=== PATIENT | male | born 1955 ===

== ENCOUNTER 2016-09-01 14:42 | Emergency (ER) | payer MEDICARE, OTHER ==
[2016-09-01 15:33] VITALS: BP 101/56; PULSE 80; RESP 16; TEMP 98.2
[2016-09-01] MEDS ORDERED: DIPH,PERTUS(ACELL)TETVAC-LF 0.5 ML VIAL IM ONE (15:50)
[2016-09-01] MEDS ORDERED: GELATIN SPONGE,ABSORB (SMALL) 1 EACH SPONGE TOPICAL STA (15:50)
--- NOTE | 2016-09-01 15:52 | ED ---
General Adult HPI - General Chief complaint: Wound/Laceration Stated complaint: Finger Lac/ on blood thinners Time Seen by Provider: 09/01/16 15:49 Source: patient, RN notes reviewed Mode of arrival: ambulatory Limitations: no limitations - History of Present Illness Initial comments: Patient 60-year-old male who presents emergency room today with chief complaint of laceration located to the right index finger. He does admit that he was moving some plywood when it fell down pinched his right finger causing a abrasion of the skin. Does admit that he is on blood thinners Xarelto and Plavix. Patient states unsure of tetanus status. Denies any other complaints or symptoms. Patient denies any recent fever, chills, shortness of breath, chest pain, back pain, abdominal pain, nausea or vomiting, numbness or tingling , dysuria or hematuria, constipation or diarrhea, headaches or visual changes, or any other complaints. - Related Data Home Medications Medication Instructions Recorded Confirmed ALPRAZolam [Xanax] 1 mg PO TID PRN 08/07/15 02/05/16 Acyclovir [Zovirax] 200 mg PO BID 08/07/15 02/05/16 Clopidogrel [Plavix] 75 mg PO HS 08/07/15 02/05/16 Lansoprazole [Prevacid] 15 mg PO DAILY 08/07/15 02/05/16 Lisinopril [Zestril] 30 mg PO DAILY 08/07/15 02/05/16 Magnesium 250 mg PO DAILY 08/07/15 02/05/16 Metoprolol Tartrate [Lopressor] 100 mg PO BID 08/07/15 02/05/16 Testosterone Cypionate 50 mg IM FR 08/07/15 02/05/16 [Depo-Testosterone] Cholecalciferol [Vitamin D3] 2,000 unit PO DAILY 08/19/15 02/05/16 Aspirin 325 mg PO DAILY 02/02/16 02/05/16 Rivaroxaban [Xarelto] 20 mg PO HS 02/02/16 02/05/16 Previous Rx's Medication Instructions Recorded Atorvastatin [Lipitor] 80 mg PO HS #30 tab 08/25/15 Nitroglycerin Sl Tabs [Nitrostat] 0.4 mg SUBLINGUAL Q5M PRN #25 tab 08/25/15 Spironolactone [Aldactone] 25 mg PO DAILY #30 tab 08/25/15 Amiodarone [Cordarone] 200 mg PO DAILY #90 tab 02/05/16 Allergies Allergy/AdvReac Type Severity Reaction Status Date / Time hydrocodone Allergy Itching Verified 09/01/16 15:33 Review of Systems ROS Statement: Those systems with pertinent positive or pertinent negative responses have been documented in the HPI. ROS Other: All systems not noted in ROS Statement are negative. Past Medical History Past Medical History: Coronary Artery Disease (CAD), Chest Pain / Angina, CVA/ TIA, Deep Vein Thrombosis (DVT), GERD/Reflux, Hypertension, Myocardial Infarction ([place]), Vascular Disorder Additional Past Medical History / Comment(s): [place] in 1988. See Dr. Mendez's H & P. Last Myocardial Infarction Date:: 1988 History of Any Multi-Drug Resistant Organisms: None Reported Past Surgical History: Back Surgery, Heart Catheterization With Stent, Pacemaker Additional Past Surgical History / Comment(s): Lt leg multiple surgeries for trauma, Rt finger surgery, arthroscopic L knee surgery , back injections for pain, L4-L5, back surgery. Past Anesthesia/Blood Transfusion Reactions: No Reported Reaction Date of Last Stent Placement:: 08/19/15 Type of Cardiac Device: AICD Device Placement Date:: 2015 Past Psychological History: Anxiety Additional Psychological History / Comment(s): Pt has an adult son who lives with him. He is independent. He has a cane or walker to use for ambulation. He drives. No outside services being used. Smoking Status: Former smoker Past Alcohol Use History: None Reported Additional Past Alcohol Use History / Comment(s): Pt states he started smoking in 1967 and was up to a 2 ppd smoker. He quit in 2004. Past Drug Use History: Marijuana Additional Drug Use History / Comment(s): Uses medical marijuana rarely. - Past Family History Mother Family Medical History: Cancer Additional Family Medical History / Comment(s): Mother had renal cancer. She at age 72 from this. Father Additional Family Medical History / Comment(s): Father was a 3 ppd smoker. He at age 60 yrs of ASHD. General Exam - General Exam Comments Initial Comments: General: The patient is awake and alert, in no distress, and does not appear acutely ill. Neck: The neck is supple, there is no tenderness or JVD. Cardiovascular: There is a regular rate and rhythm. No murmur, rub or gallop is appreciated. Respiratory: Lungs are clear to auscultation, respirations are non-labored, breath sounds are equal. No wheezes, stridor, rales, or rhonchi. Musculoskeletal: Normal range of motion. Strength 5/5. Sensation intact. Pulses equal bilaterally 2+. Neurological: A&O x 3. CN II-XII intact, There are no obvious motor or sensory deficits. Coordination appears grossly intact. Speech is normal. Skin: Skin avulsion of the distal aspect volar of the right index finger. Mild venous oozing. Psychiatric: Normal mood and affect. Limitations: no limitations Course Vital Signs 09/01/16 15:30 Temperature 98.2 F Pulse Rate 80 Respiratory 16 Rate Blood Pressure 101/56 O2 Sat by Pulse 94 L Oximetry Medical Decision Making - Medical Decision Making Tetanus updated here in the emergency room. Area cleaned here in the emergency room and bleeding stopped with Gelfoam. Patient has sterile nonstick dressing placed over top. Disposition Clinical Impression: Laceration Disposition: HOME SELF-CARE Condition: Good Instructions: Laceration (ED) Additional Instructions: Please allow the Gelfoam fall off on its own. Please change dressing twice daily. Please hold pressure to wound if bleeding degrees occurs for 20 minutes. If rebleeding is uncontrolled at home please return to emergency room. Please return to emergency room for any other concerns. Time of Disposition: 16:39
== END 2016-09-01 16:51 | disposition home or self-care (01) ==
LOC: EC 14:42
DX: S61.210A Laceration without foreign body of right index finger without damage to nail, initial encounter (principal); W20.8XXA Other cause of strike by thrown, projected or falling object, initial encounter; Z79.02 Long term (current) use of antithrombotics/antiplatelets; Z79.899 Other long term (current) drug therapy; Z79.82 Long term (current) use of aspirin; Z79.01 Long term (current) use of anticoagulants; I10 Essential (primary) hypertension; K21.9 Gastro-esophageal reflux disease without esophagitis; I25.10 Atherosclerotic heart disease of native coronary artery without angina pectoris; Z86.73 Personal history of transient ischemic attack (TIA), and cerebral infarction without residual deficits; Z88.5 Allergy status to narcotic agent; I25.2 Old myocardial infarction; Z86.718 Personal history of other venous thrombosis and embolism; Z87.891 Personal history of nicotine dependence
CPT/HCPCS: 90471; 90715; 99282

== ENCOUNTER 2018-01-06 07:39 | Day surgery (SDC) | payer MEDICARE ==
[~2018-01-06 07:39] MED LIST: PREMYELOGRAM MEDICATION REVIEW 1 EACH MISC PO PRN
[2018-01-06 08:36] VITALS: TEMP 98.1
--- NOTE | 2018-01-06 09:56 | FL ---
EXAMINATION TYPE: FL myelogram lumbosacral DATE OF EXAM: 01/06/2018 9:52 AM HISTORY: Lower extremity pain and numbness Informed consent was obtained and all the patient's questions were answered. The L3-L4 level was loc alized under fluoroscopy. Standard sterile technique was utilized as well as appropriate local anest hesia 1% Lidocaine and sodium bicarbonate. Spinal needle was introduced into the thecal sac under fl uoroscopic guidance and 10 cc of Omni 240 was injected. The patient tolerated the procedure well and left the department in stable condition. CT myelography is to follow. IMPRESSION: Successful myelography lumbar spine
--- NOTE | 2018-01-06 10:21 | CT ---
EXAMINATION TYPE: CT lumbar spine w con DATE OF EXAM: 01/06/2018 COMPARISON: 08/15/2015 HISTORY: Spinal stenosis site unspecified CT DLP: 1198.50 mGycm CONTRAST: Unenhanced CT of the lumbar spine is performed with IV Contrast, patient injected with 12 cc mL of Is ovue M300. Unenhanced CT of the lumbar spine was performed. Bone and soft tissue window settings are submitted as well as coronal and sagittal reconstructions. L1-L2: Severe degenerative disc space narrowing with vacuum disc noted. Subligamentous disc herniatio n identified with effacement of the ventral thecal sac and mild to moderate central stenosis. Mild fa cet joint arthropathy without foraminal encroachment. L2-L3: Severe disc space narrowing and vacuum disc noted and endplate sclerosis. Ventral spondylosis. Posterior bulging discs with encapsulating spur resulting in hard disc. Again noted is mild central stenosis. L3-L4: Moderate disc desiccation with left paracentral disc herniation. Effacement ventral thecal sac left lateral recess stenosis and mild central stenosis. Left foraminal encroachment also noted. Grad e 1 retrolisthesis of L3 on L4 measuring 4.3 mm. L4-L5: Postoperative changes of fusion. Pedicular screws are in place. Alignment is anatomic. Interve rtebral body spacers are in place. No evidence for recurrent or residual disease at this level. L5-S1: Mild degenerative disc space narrowing. Posterior disc bulge. No herniation protrusion or cent ral stenosis. Foramina are patent bilaterally. No paraspinal masses are identified. Lumbar segments are free if fracture. Stable infrarenal abdomin al aortic aneurysm. IMPRESSION: 1. Low degenerative disc disease as discussed. 2. Central stenosis at L1-2, L2-3 and L3-4. See above.
[2018-01-06 11:28] VITALS: PULSE 54
[2018-01-06 14:39] VITALS: BP 121/69; RESP 20
== END 2018-01-06 14:15 | disposition home or self-care (01) ==
LOC: RADPROMAIN 07:39
PROVIDERS: ATTEND Family Medicine
DX: M51.36 Other intervertebral disc degeneration, lumbar region (principal); M48.061 Spinal stenosis, lumbar region without neurogenic claudication
CPT/HCPCS: 62304; 72132; Q9967

== ENCOUNTER → 2018-04-04 | Outpatient (CLI) | payer MEDICARE | LOC: RADCTMAIN 12:52 | PROVIDERS: ATTEND Family Medicine | DX: Z13.9 Encounter for screening, unspecified (principal) | CPT/HCPCS: 82565; 84520 ==

== ENCOUNTER → 2020-04-09 | Outpatient (CLI) | payer MEDICARE ==
--- NOTE | 2020-04-09 08:54 | CT ---
EXAMINATION TYPE: CT abdomen wo con DATE OF EXAM: 04/09/2020 COMPARISON: None HISTORY: AAA CT DLP: 419.8 mGycm Examination of the solid and hollow viscera is limited given the lack of contrast. Unenhanced CT of t he abdomen was performed. The lack of contrast limits evaluation. FINDINGS: LUNG BASES: No evidence for nodule. No evidence for infiltrate. LIVER/GB: Cholelithiasis noted. Gallbladder appears to be contracted. No space-occupying hepatic lesi on. PANCREAS: No pancreatic mass identified. No inflammatory process seen. SPLEEN: No evidence for splenomegaly. No intrasplenic lesions seen. ADRENALS: No adrenal nodules identified. No evidence for thickening. KIDNEYS: No evidence for renal mass. No nephrolithiasis. No hydronephrosis. BOWEL: Appendix has a normal appearance. No evidence of bowel obstruction. No inflammatory process. Lymph nodes: No evidence for adenopathy greater than 1 cm. Abdominal aorta: There is evidence for infrarenal abdominal aortic aneurysm with maximal AP dimension of 4.2 cm and length of approximately 7.2 cm. Ectasia of the visualized iliac arteries. Other: Severe degenerative change lumbar spine. Postoperative changes noted. IMPRESSION: 1. Infrarenal abdominal aortic aneurysm as discussed above. Limited characterization given lack of co ntrast.
== END | disposition home or self-care (01) ==
LOC: RADCTMAIN 08:01
PROVIDERS: ATTEND Family Medicine
DX: I71.4 Abdominal aortic aneurysm, without rupture (principal)
CPT/HCPCS: 74150

== ENCOUNTER 2022-07-05 11:55 | Day surgery (SDC) | payer MEDICARE ==
[2022-07-02 09:00] VITALS: BMI 29.1
[~2022-07-05 11:55] MED LIST changes: +DEXAMETHASONE SOD PHOSPHATE 4 MG/ML 1 ML VIAL IV ONE; +LACTATED RINGERS 1,000 ML IV SCH; +MIDAZOLAM 2 MG/2 ML VIAL IV PRN; +ONDANSETRON 4 MG/2 ML VIAL IVP ONE; -PREMYELOGRAM MEDICATION REVIEW 1 EACH MISC PO PRN; +PROPOFOL 10 MG/ML 20 ML VIAL IV ONE; +fentaNYL (PF) 50 MCG/ML 2 ML AMP IV PRN
[2022-07-05 12:56] VITALS: TEMP 97.3
[2022-07-05 13:09] LABS: Glucose,Whole Blood 140 mg/dL (70-110)
--- NOTE | 2022-07-05 14:30 | P.GSHP ---
History of Present Illness H&P Date: 07/05/22 Chief Complaint: Screening colonoscopy/constipation Is a 66-year-old male been safe for screening colonoscopy. Patient is issues with constipation. Patient's last colonoscopy was over 10 years ago. Past Medical History Past Medical History: Coronary Artery Disease (CAD), Chest Pain / Angina, CVA/TIA, Diabetes Mellitus, Deep Vein Thrombosis (DVT), GERD/Reflux, Hyperlipidemia, Hypertension, Myocardial Infarction ([place]), Osteoarthritis ([place]), Thyroid Disorder, Vascular Disorder Additional Past Medical History / Comment(s): [place] in 1988 &2013, hypothyroid, (pt poor historian), right side weakness from stroke Last Myocardial Infarction Date:: 1988 History of Any Multi-Drug Resistant Organisms: None Reported Past Surgical History: Back Surgery, Heart Catheterization With Stent, Pacemaker Additional Past Surgical History / Comment(s): Lt leg multiple surgeries for trauma, Rt finger surgery, arthroscopic L knee surgery , back injections for pain, L4-L5, back surgery, myelogram 2015 Past Anesthesia/Blood Transfusion Reactions: No Reported Reaction Date of Last Stent Placement:: 08/19/15 Type of Cardiac Device: Permanent Pacemaker, AICD Device Placement Date:: 2015 Smoking Status: Former smoker - Past Family History Mother Family Medical History: Cancer Additional Family Medical History / Comment(s): Mother had renal cancer. She at age 72 from this. Father Family Medical History: Coronary Artery Disease (CAD) Additional Family Medical History / Comment(s): Father was a 3 ppd smoker. He at age 60 yrs of ASHD. Medications and Allergies Home Medications Medication Instructions Recorded Confirmed Type Acyclovir [Zovirax] 200 mg PO BID 08/07/15 07/02/22 History Clopidogrel [Plavix] 75 mg PO HS 08/07/15 07/05/22 History Metoprolol Tartrate [Lopressor] 100 mg PO BID 08/07/15 07/05/22 History lisinopriL [Zestril] 30 mg PO DAILY 08/07/15 07/05/22 History Atorvastatin [Lipitor] 80 mg PO HS #30 tab 08/25/15 07/02/22 Rx Nitroglycerin Sl Tabs [Nitrostat] 0.4 mg SUBLINGUAL Q5M PRN #25 tab 08/25/15 07/05/22 Rx Rivaroxaban [Xarelto] 20 mg PO HS 02/02/16 07/05/22 History Torsemide [Demadex] 5 mg PO DAILY 12/22/17 07/05/22 History glipiZIDE [Glucotrol] 5 mg PO AC-BRKFST 12/22/17 07/05/22 History Sleeping Pill 50 mg PO HS PRN 07/02/22 07/05/22 History Allergies Allergy/AdvReac Type Severity Reaction Status Date / Time hydrocodone Allergy Itching Verified 07/05/22 12:52 Surgical - Exam Vital Signs Temp Pulse Resp BP Pulse Ox 97.3 F L 65 18 200/89 100 07/05/22 12:51 07/05/22 12:51 07/05/22 12:51 07/05/22 12:51 07/05/22 12:51 - General well developed, well nourished, no distress - Eyes PERRL - ENT normal pinna - Neck no masses - Respiratory normal expansion - Cardiovascular Rhythm: regular - Abdomen Abdomen: soft, non tender Results - Labs Abnormal Lab Results - Last 24 Hours (Table) 07/05/22 Range/Units 13:07 POC Glucose (mg/dL) 140 H (70-110) mg/dL Assessment and Plan Assessment: History constipation. We'll perform colonoscopy.
--- NOTE | 2022-07-05 14:44 | P.OP ---
Date of Procedure: 07/05/22 Preoperative Diagnosis: Constipation Postoperative Diagnosis: Right colon polyp Mild diverticulosis Procedure(s) Performed: Colonoscopy Anesthesia: MAC Surgeon: Mac Rivero Pathology: other (Right colon polyp) Condition: stable Disposition: PACU Description of Procedure: The patient's placed on the endoscopy table in the lateral position. He received IV sedation. Digital rectal exam was performed. This revealed no ebonized. The flexible colonoscope was then placed patient anus and passed thro ughout the entire colon. The ileocecal valve was visualized. The cecum appeared normal. In the right colon there is a small polyp seen this is removed with the cold forcep. Scope withdrawn remainder the ascending colon and transverse colon appeared normal. The descending and sigmoid colon had mild diverticulosis. Scope was then brought back the rectum this appeared normal. Scope withdrawn for patient.
[2022-07-05 15:18] VITALS: BP 129/65; PULSE 68; RESP 16
== END 2022-07-05 15:51 | disposition home or self-care (01) ==
LOC: ORWHC2ENDO 11:55
PROVIDERS: ATTEND Surgery
DX: D12.6 Benign neoplasm of colon, unspecified (principal); K57.30 Diverticulosis of large intestine without perforation or abscess without bleeding; I25.10 Atherosclerotic heart disease of native coronary artery without angina pectoris; E11.9 Type 2 diabetes mellitus without complications; I10 Essential (primary) hypertension; E78.5 Hyperlipidemia, unspecified; I25.2 Old myocardial infarction; E07.9 Disorder of thyroid, unspecified; Z95.810 Presence of automatic (implantable) cardiac defibrillator; Z87.891 Personal history of nicotine dependence; Z86.73 Personal history of transient ischemic attack (TIA), and cerebral infarction without residual deficits; Z82.49 Family history of ischemic heart disease and other diseases of the circulatory system; Z79.899 Other long term (current) drug therapy
CPT/HCPCS: 45380; J2704; 88305

== ENCOUNTER 2023-04-25 06:16 | Inpatient (IN) | payer MEDICARE ==
[2023-04-25] MEDS ORDERED: SODIUM CHLORIDE 0.9% 1,000 ML IV STA (06:28)
--- NOTE | 2023-04-25 06:45 | ED ---
Weakness HPI - General Chief complaint: Weakness Stated complaint: Fall, Weakness Time Seen by Provider: 04/25/23 06:18 Source: patient, EMS Mode of arrival: EMS - History of Present Illness Initial comments: Patient is 67-year-old male presenting to the ER via EMS with chief complaint of generalized weakness. Patient has a past medical history significant of hypertension, A. fib, CHF, and stroke. Patient's family spoke with EMS and stated patient has fallen twice this morning and his speech is off from baseline. Patient was sent home and his family are the primary caretakers. Patient states he has slid out of bed twice this morning and got a skin tear on his right elbow. Per EMS, his heart rate varies from the 30s to 90s regularly. In route, his systolic blood pressure was in the 170 to 180s. Patient denies home oxygen use or any current pain. Patient denies any headache, chest pain, shortness of breath, or abdominal pain. - Related Data Home Medications Medication Instructions Recorded Confirmed Acyclovir [Zovirax] 200 mg PO BID 08/07/15 04/25/23 Clopidogrel [Plavix] 75 mg PO DAILY 08/07/15 04/25/23 Torsemide [Demadex] 5 mg PO DAILY 12/22/17 04/25/23 glipiZIDE [Glucotrol] 5 mg PO DAILY 12/22/17 04/25/23 ALPRAZolam [Xanax] 1 mg PO TID 08/20/22 04/25/23 Atorvastatin [Lipitor] 80 mg PO DAILY 08/20/22 04/25/23 Metoprolol Tartrate [Lopressor] 100 mg PO BID 08/20/22 04/25/23 lisinopriL [Zestril] 10 mg PO BID 08/20/22 04/25/23 Levothyroxine Sodium [Synthroid] 150 mcg PO DAILY 04/25/23 04/25/23 QUEtiapine [SEROquel] 50 mg PO HS 04/25/23 04/25/23 Rivaroxaban [Xarelto] 15 mg PO DAILY 04/25/23 04/25/23 Allergies Allergy/AdvReac Type Severity Reaction Status Date / Time hydrocodone Allergy Itching Verified 04/25/23 13:01 Review of Systems ROS Statement: Those systems with pertinent positive or pertinent negative responses have been documented in the HPI. ROS Other: All systems not noted in ROS Statement are negative. Past Medical History Past Medical History: Coronary Artery Disease (CAD), Chest Pain / Angina, CVA/TIA, Diabetes Mellitus, Deep Vein Thrombosis (DVT), GERD/Reflux, Hyperlipidemia, Hypertension, Myocardial Infarction (ME), Osteoarthritis (OA), Thyroid Disorder, Vascular Disorder Additional Past Medical History / Comment(s): ME in 1988 &2013, hypothyroid, (pt poor historian), right side weakness from stroke Last Myocardial Infarction Date:: 1988 History of Any Multi-Drug Resistant Organisms: None Reported Past Surgical History: Back Surgery, Heart Catheterization With Stent, Pacemaker Additional Past Surgical History / Comment(s): Lt leg multiple surgeries for trauma, Rt finger surgery, arthroscopic L knee surgery , back injections for pain, L4-L5, back surgery, myelogram 2015 Past Anesthesia/Blood Transfusion Reactions: No Reported Reaction Date of Last Stent Placement:: 08/19/15 Type of Cardiac Device: Permanent Pacemaker, AICD Device Placement Date:: 2015 Past Psychological History: Anxiety Smoking Status: Former smoker Past Alcohol Use History: None Reported Past Drug Use History: None Reported - Past Family History Mother Family Medical History: Cancer Additional Family Medical History / Comment(s): Mother had renal cancer. She at age 72 from this. Father Family Medical History: Coronary Artery Disease (CAD) Additional Family Medical History / Comment(s): Father was a 3 ppd smoker. He at age 60 yrs of ASHD. General Exam Limitations: no limitations General appearance: alert, in no apparent distress Eye exam: Present: normal appearance, PERRL, EOMI. Absent: scleral icterus, conjunctival injection, periorbital swelling Pupils: Present: normal accommodation Respiratory exam: Present: normal lung sounds bilaterally. Absent: respiratory distress, wheezes, rales, rhonchi, stridor Cardiovascular Exam: Present: regular rate, irregular rhythm, normal heart sounds GI/Abdominal exam: Present: soft, normal bowel sounds. Absent: distended, ten derness, guarding, rebound, rigid Neurological exam: Present: alert, other (Equal bilateral strengths UE/LE) Skin exam: Present: warm, dry, normal color, other (right elbow skin tear). Absent: rash Course Vital Signs 04/25/23 04/25/23 04/25/23 07:37 09:19 09:29 Temperature 98.8 F Pulse Rate 79 73 Respiratory 18 Rate Blood Pressure 166/88 154/81 O2 Sat by Pulse 92 L 93 L Oximetry 04/25/23 10:49 Temperature Pulse Rate 68 Respiratory 24 Rate Blood Pressure 144/90 O2 Sat by Pulse 95 Oximetry EKG Findings - EKG Comments: EKG Findings:: EKG performed at 0747. Shows normal sinus rhythm with unchanged Twave abnormalities noted in lateral lateral leads .with a ventricular rate of 7 8, MD interval of 190, QRS duration 137, QT/QTc 444/477. Medical Decision Making - Medical Decision Making Was pt. sent in by a medical professional or institution (, PA, JOURNEYMAN WELDER, urgent care, hospital, or care home...) When possible be specific @ -No Did you speak to anyone other than the patient for history (EMS, parent, family, police, friend...)? What history was obtained from this source @ -EMS Did you review nursing and triage notes (agree or disagree)? Why? @ -I reviewed and agree with nursing and triage notes Were old charts reviewed (outside hosp., previous admission, EMS record, old EKG, old radiological studies, urgent care reports/EKG's, care home records)? Report findings @ -No old charts were reviewed Differential Diagnosis (chest pain, altered mental status, abdominal pain women, abdominal pain men, vaginal bleeding, weakness, fever, dyspnea, syncope, he adache, dizziness, GI bleed, back pain, seizure, CVA, palpatations, mental health, musculoskeletal)? @ -[nDifferential Weakness: Hypoglycemia, shock, sepsis, hyponatremia, anemia, infection, ME, ETOH, adverse medicine reaction, overdose, stroke, this is not meant to be an all-inclusive list. EKG interpreted by me (3pts min.). @ -As above X-rays interpreted by me (1pt min.). @ -Chest x-ray showed mild pulmonary vascular congestion and cardiomegaly CT interpreted by me (1pt min.). @ -None done U/S interpreted by me (1pt. min.). @ -None done What testing was considered but not performed or refused? (CT, X-rays, U/S, labs)? Why? @ -None What meds were considered but not given or refused? Why? @ -None Did you discuss the management of the patient with other professionals (professionals i.e. , PA, JOURNEYMAN WELDER, lab, RT, psych nurse, social media specialist, hospice fellow, teacher, targeting acquisition officer, director of casework department)? Give summary @ -No Was smoking cessation discussed for >3mins.? @ -No Was critical care preformed (if so, how long)? @ -No Were there social determinants of health that impacted care today? How? (Homelessness, low income, unemployed, alcoholism, drug addiction, transportation, low edu. Level, literacy, decrease access to med. care, long term, rehab)? @ -No Was there de-escalation of care discussed even if they declined (Discuss DNR or withdrawal of care, Hospice)? DNR status @ -No What co-morbidities impacted this encounter? (DM, HTN, Smoking, COPD, CAD, Cancer, CVA, ARF, Chemo, Hep., AIDS, mental health diagnosis, sleep apnea, morbid obesity)? @ -None Was patient admitted / discharged? Hospital course, mention meds given and route, prescriptions, significant lab abnormalities, going to OR and other pert inent info. @ -[Discharged. Patient is 67-year-old male presented ER with chief complaint of weakness. Chest x-ray in the ER shows mild pulmonary vascular congestion. Labs are significant for white blood cell count of 13.2, BNP 3900, UA negative, COVID-19 negative. EKG showed normal sinus rhythm with no acute T-wave abnormalities. Patient is a 500 mL of IV fluids in the ER. Patient was offered observation admission for weakness patient declined at this time and would like to go home. Patient will be discharged in stable condition patient expressed verbal understanding. Undiagnosed new problem with uncertain prognosis? @ -No Drug Therapy requiring intensive monitoring for toxicity (Heparin, Nitro, Insulin, Cardizem)? @ -No Were any procedures done? @ -No Diagnosis/symptom? @ -Weakness Acute, or Chronic, or Acute on Chronic? @ -Acute Uncomplicated (without systemic symptoms) or Complicated (systemic symptoms)? @ -Uncomplicated Side effects of treatment? @ -No Exacerbation, Progression, or Severe Exacerbation? @ -No Poses a threat to life or bodily function? How? (Chest pain, USA, ME, pneumonia, PE, COPD, DKA, ARF, appy, cholecystitis, CVA, Diverticulitis, Homicidal, Suicidal, threat to staff... and all critical care pts) @ -No - Lab Data Result diagrams: 04/25/23 08:06 04/25/23 08:06 Lab Results 04/25/23 04/25/23 04/25/23 Range/Units 08:06 08:06 08:06 WBC 13.2 H (3.8-10.6) k/uL RBC 4.99 (4.30-5.90) m/uL Hgb 15.5 (13.0-17.5) gm/dL Hct 47.0 (39.0-53.0) % MCV 94.3 (80.0-100.0) fL MCH 31.1 (25.0-35.0) pg MCHC 33.0 (31.0-37.0) g/dL RDW 15.4 (11.5-15.5) % Plt Count 134 L (150-450) k/uL MPV 9.3 Neutrophils % 87 % Lymphocytes % 6 % Monocytes % 6 % Eosinophils % 0 % Basophils % 0 % Neutrophils # 11.5 H (1.3-7.7) k/uL Lymphocytes # 0.8 L (1.0-4.8) k/uL Monocytes # 0.7 (0-1.0) k/uL Eosinophils # 0.1 (0-0.7) k/uL Basophils # 0.0 (0-0.2) k/uL Sodium 141 (137-145) mmol/L Potassium 4.1 (3.5-5.1) mmol/L Chloride 105 (98-107) mmol/L Carbon Dioxide 25 (22-30) mmol/L Anion Gap 11 mmol/L BUN 17 (9-20) mg/dL Creatinine 0.88 (0.66-1.25) mg/dL Est GFR (CKD-EPI)AfAm >90 (>60 ml/min/1.73 sqM) Est GFR (CKD-EPI)NonAf 88 (>60 ml/min/1.73 sqM) Glucose 136 H (74-99) mg/dL Calcium 8.9 (8.4-10.2) mg/dL Magnesium 1.9 (1.6-2.3) mg/dL Total Bilirubin 1.4 H (0.2-1.3) mg/dL AST 29 (17-59) U/L ALT 20 (4-49) U/L Alkaline Phosphatase 100 (38-126) U/L Troponin I 0.033 (0.000-0.034) ng/mL NT-Pro-B Natriuret Pep pg/mL Total Protein 7.4 (6.3-8.2) g/dL Albumin 3.7 (3.5-5.0) g/dL Urine Color Urine Appearance (Clear) Urine pH (5.0-8.0) Ur Specific [place] (1.001-1.035) Urine Protein (Negative) Urine Glucose (UA) (Negative) Urine Ketones (Negative) Urine Blood (Negative) Urine Nitrite (Negative) Urine Bilirubin (Negative) Urine Urobilinogen (<2.0) mg/dL Ur Leukocyte Esterase (Negative) Coronavirus (PCR) (Not Detectd) 04/25/23 04/25/23 04/25/23 Range/Units 08:06 08:06 11:41 WBC (3.8-10.6) k/uL RBC (4.30-5.90) m/uL Hgb (13.0-17.5) gm/dL Hct (39.0-53.0) % MCV (80.0-100.0) fL MCH (25.0-35.0) pg MCHC (31.0-37.0) g/dL RDW (11.5-15.5) % Plt Count (150-450) k/uL MPV Neutrophils % % Lymphocytes % % Monocytes % % Eosinophils % % Basophils % % Neutrophils # (1.3-7.7) k/uL Lymphocytes # (1.0-4.8) k/uL Monocytes # (0-1.0) k/uL Eosinophils # (0-0.7) k/uL Basophils # (0-0.2) k/uL Sodium (137-145) mmol/L Potassium (3.5-5.1) mmol/L Chloride (98-107) mmol/L Carbon Dioxide (22-30) mmol/L Anion Gap mmol/L BUN (9-20) mg/dL Creatinine (0.66-1.25) mg/dL Est GFR (CKD-EPI)AfAm (>60 ml/min/1.73 sqM) Est GFR (CKD-EPI)NonAf (>60 ml/min/1.73 sqM) Glucose (74-99) mg/dL Calcium (8.4-10.2) mg/dL Magnesium (1.6-2.3) mg/dL Total Bilirubin (0.2-1.3) mg/dL AST (17-59) U/L ALT (4-49) U/L Alkaline Phosphatase (38-126) U/L Troponin I (0.000-0.034) ng/mL NT-Pro-B Natriuret Pep 3900 pg/mL Total Protein (6.3-8.2) g/dL Albumin (3.5-5.0) g/dL Urine Color Colorless Urine Appearance Clear (Clear) Urine pH 7.5 (5.0-8.0) Ur Specific [place] 1.011 (1.001-1.035) Urine Protein Negative (Negative) Urine Glucose (UA) Negative (Negative) Urine Ketones Negative (Negative) Urine Blood Negative (Negative) Urine Nitrite Negative (Negative) Urine Bilirubin Negative (Negative) Urine Urobilinogen <2.0 (<2.0) mg/dL Ur Leukocyte Esterase Negative (Negative) Coronavirus (PCR) Not Detected (Not Detectd) - Radiology Data Radiology results: report reviewed, image reviewed Disposition Clinical Impression: Weakness Disposition: HOME SELF-CARE Condition: Stable Additional Instructions: Please return to the Emergency Department if symptoms worsen or any other concerns. Is patient prescribed a controlled substance at d/c from ED?: No Referrals: Manas Cervantes Jr, DO [Primary Care Provider] - 1-2 days Decision Time: 13:56
[2023-04-25] MEDS ORDERED: SODIUM CHLORIDE 0.9% 500 ML 500 ML IV STA (07:15)
[2023-04-25 08:24] LABS: Basophils % (A) 0 %; Eosinophils # (A) 0.1 k/uL (0-0.7); Eosinophils % (A) 0 %; HGB 15.5 gm/dL (13.0-17.5); Lymphocytes # (A) 0.8 k/uL (1.0-4.8); Lymphocytes % (A) 6 %; MCH 31.1 pg (25.0-35.0); MCV 94.3 fL (80.0-100.0); Mean Platelet Volume 9.3; Monocytes # (A) 0.7 k/uL (0-1.0); Monocytes % (A) 6 %; Neutrophils # (A) 11.5 k/uL (1.3-7.7); Neutrophils % (A) 87 %; Platelet Count 134 k/uL (150-450); RBC 4.99 m/uL (4.30-5.90); RDW 15.4 % (11.5-15.5); WBC 13.2 k/uL (3.8-10.6)
[2023-04-25 08:44] LABS: ALT 20 U/L (4-49); AST 29 U/L (17-59); African American GFR (CKD) >90 (>60 ml/min/1.73 sqM); Albumin 3.7 g/dL (3.5-5.0); Alkaline Phosphatase 100 U/L (38-126); Anion Gap 11 mmol/L; Blood Urea Nitrogen 17 mg/dL (9-20); Calcium 8.9 mg/dL (8.4-10.2); Carbon Dioxide 25 mmol/L (22-30); Chloride 105 mmol/L (98-107); Glucose 136 mg/dL (74-99); Magnesium 1.9 mg/dL (1.6-2.3); Non-African American GFR(CKD) 88 (>60 ml/min/1.73 sqM); Potassium 4.1 mmol/L (3.5-5.1); Sodium 141 mmol/L (137-145); Total Bilirubin 1.4 mg/dL (0.2-1.3); Total Protein 7.4 g/dL (6.3-8.2)
[2023-04-25 10:29] LABS: Appearance,Urine Clear (Clear); Bilirubin,Urine Negative (Negative); Blood,Urine Negative (Negative); Color,Urine Colorless; Glucose,Urine (UA) Negative (Negative); Ketones,Urine Negative (Negative); Leukocyte Esterase,Urine Negative (Negative); Nitrite,Urine Negative (Negative); PH, Urine 7.5 (5.0-8.0); Protein,Urine Negative (Negative); Specific Gravity,Urine 1.011 (1.001-1.035); Urobilinogen,Urine <2.0 mg/dL (<2.0)
--- NOTE | 2023-04-25 11:17 | XR ---
EXAMINATION TYPE: XR chest 2V DATE OF EXAM: 04/25/2023 11:00 AM CLINICAL INDICATION:Male, 67 years old with history of weakness; COMPARISON: Chest radiographs from 08/23/2015 TECHNIQUE: XR chest 2V Frontal and lateral views of the chest. FINDINGS: Lungs/Pleura: There is no evidence of pleural effusion, focal consolidation, or pneumothorax. Pulmonary vascularity: Unremarkable. Heart/mediastinum: Cardiomediastinal silhouette is enlarged and stable. Single-lead cardiac conductio n device overlying the left hemithorax with lead projecting over the right ventricle. Musculoskeletal: No acute osseous pathology. Other findings: None IMPRESSION: Cardiomegaly and mild pulmonary vascular congestion. Correlate with BNP for congestive heart failure.
--- NOTE | 2023-04-25 14:45 | ED ---
Medical Decision Making - Medical Decision Making Was pt. sent in by a medical professional or institution (, PA, PRESIDENT AND CHIEF OPERATING OFFICER, urgent care, hospital, or long term...) When possible be specific @ -No Did you speak to anyone other than the patient for history (EMS, parent, family, police, friend...)? What history was obtained from this source @ -EMS Did you review nursing and triage notes (agree or disagree)? Why? @ -I reviewed and agree with nursing and triage notes Were old charts reviewed (outside hosp., previous admission, EMS record, old EKG, old radiological studies, urgent care reports/EKG's, long term records)? Report findings @ -No old charts were reviewed Differential Diagnosis (chest pain, altered mental status, abdominal pain women, abdominal pain men, vaginal bleeding, weakness, fever, dyspnea, syncope, headache, dizziness, GI bleed, back pain, seizure, CVA, palpatations, mental health, musculoskeletal)? @ -Differential Weakness: Hypoglycemia, shock, sepsis, hyponatremia, anemia, infection, CO, ETOH, adverse medicine reaction, overdose, stroke, this is not meant to be an all-inclusive list. EKG interpreted by me (3pts min.). @ -As above X-rays interpreted by me (1pt min.). @ -Chest x-ray shows mild pulmonary vascular congestion and cardiomegaly. CT interpreted by me (1pt min.). @ -None done U/S interpreted by me (1pt. min.). @ -None done What testing was considered but not performed or refused? (CT, X-rays, U/S, labs)? Why? @ -None What meds were considered but not given or refused? Why? @ -None Did you discuss the management of the patient with other professionals (lily juanfesssarah i.e. , PA, PRESIDENT AND CHIEF OPERATING OFFICER, lab, RT, psych nurse, social service agency director, log brander, teacher, community service officer, case picker)? Give summary @ -No Was smoking cessation discussed for >3mins.? @ -No Was critical care preformed (if so, how long)? @ -No Were there social determinants of health that impacted care today? How? (Homelessness, low income, unemployed, alcoholism, drug addiction, transpor tation, low edu. Level, literacy, decrease access to med. care, care home, rehab)? @ -No Was there de-escalation of care discussed even if they declined (Discuss DNR or withdrawal of care, Hospice)? DNR status @ -No What co-morbidities impacted this encounter? (DM, HTN, Smoking, COPD, CAD, Cancer, CVA, ARF, Chemo, Hep., AIDS, mental health diagnosis, sleep apnea, morbid obesity)? @ -None Was patient admitted / discharged? Hospital course, mention meds given and route, prescriptions, significant lab abnormalities, going to OR and other pertinent info. @ -Admitted. Patient is a 67-year-old male presenting the ER via EMS with chief complaint of weakness. Chest x-ray shows mild pulmonary vascular congestion and cardiomegaly. Labs were significant for a WBC of 13.2, BNP 3900, UA was negative, troponin was negative, COVID-19 negative. Patient was started on 2 L NC O2 with his stats and low 90s. Patient had an episode of oxygen saturation at 85 on 4 L of oxygen. Patient was given 500 mL of NS. Patient will be admitted for observation with cardiology, pulmonary, neurology consulted. Undiagnosed new problem with uncertain prognosis? @ -No Drug Therapy requiring intensive monitoring for toxicity (Heparin, Nitro, Insulin, Cardizem)? @ -No Were any procedures done? @ -No Diagnosis/symptom? @ -Weakness, CHF Acute, or Chronic, or Acute on Chronic? @ -Acute Uncomplicated (without systemic symptoms) or Complicated (systemic symptoms)? @ -Uncomplicated Side effects of treatment? @ -No Exacerbation, Progression, or Severe Exacerbation? @ -No Poses a threat to life or bodily function? How? (Chest pain, USA, CO, pneumonia, PE, COPD, DKA, ARF, appy, cholecystitis, CVA, Diverticulitis, Homicidal, Suicidal, threat to staff... and all critical care pts) @ -No - Lab Data Result diagrams: 04/25/23 08:06 04/25/23 08:06 Lab Results 04/25/23 04/25/23 04/25/23 Range/Units 08:06 08:06 08:06 WBC 13.2 H (3.8-10.6) k/uL RBC 4.99 (4.30-5.90) m/uL Hgb 15.5 (13.0-17.5) gm/dL Hct 47.0 (39.0-53.0) % MCV 94.3 (80.0-100.0) fL MCH 31.1 (25.0-35.0) pg MCHC 33.0 (31.0-37.0) g/dL RDW 15.4 (11.5-15.5) % Plt Count 134 L (150-450) k/uL MPV 9.3 Neutrophils % 87 % Lymphocytes % 6 % Monocytes % 6 % Eosinophils % 0 % Basophils % 0 % Neutrophils # 11.5 H (1.3-7.7) k/uL Lymphocytes # 0.8 L (1.0-4.8) k/uL Monocytes # 0.7 (0-1.0) k/uL Eosinophils # 0.1 (0-0.7) k/uL Basophils # 0.0 (0-0.2) k/uL Sodium 141 (137-145) mmol/L Potassium 4.1 (3.5-5.1) mmol/L Chloride 105 (98-107) mmol/L Carbon Dioxide 25 (22-30) mmol/L Anion Gap 11 mmol/L BUN 17 (9-20) mg/dL Creatinine 0.88 (0.66-1.25) mg/dL Est GFR (CKD-EPI)AfAm >90 (>60 ml/min/1.73 sqM) Est GFR (CKD-EPI)NonAf 88 (>60 ml/min/1.73 sqM) Glucose 136 H (74-99) mg/dL Calcium 8.9 (8.4-10.2) mg/dL Magnesium 1.9 (1.6-2.3) mg/dL Total Bilirubin 1.4 H (0.2-1.3) mg/dL AST 29 (17-59) U/L ALT 20 (4-49) U/L Alkaline Phosphatase 100 (38-126) U/L Troponin I 0.033 (0.000-0.034) ng/mL NT-Pro-B Natriuret Pep pg/mL Total Protein 7.4 (6.3-8.2) g/dL Albumin 3.7 (3.5-5.0) g/dL Urine Color Urine Appearance (Clear) Urine pH (5.0-8.0) Ur Specific [place] (1.001-1.035) Urine Protein (Negative) Urine Glucose (UA) (Negative) Urine Ketones (Negative) Urine Blood (Negative) Urine Nitrite (Negative) Urine Bilirubin (Negative) Urine Urobilinogen (<2.0) mg/dL Ur Leukocyte Esterase (Negative) Coronavirus (PCR) (Not Detectd) 04/25/23 04/25/23 04/25/23 Range/Units 08:06 08:06 11:41 WBC (3.8-10.6) k/uL RBC (4.30-5.90) m/uL Hgb (13.0-17.5) gm/dL Hct (39.0-53.0) % MCV (80.0-100.0) fL MCH (25.0-35.0) pg MCHC (31.0-37.0) g/dL RDW (11.5-15.5) % Plt Count (150-450) k/uL MPV Neutrophils % % Lymphocytes % % Monocytes % % Eosinophils % % Basophils % % Neutrophils # (1.3-7.7) k/uL Lymphocytes # (1.0-4.8) k/uL Monocytes # (0-1.0) k/uL Eosinophils # (0-0.7) k/uL Basophils # (0-0.2) k/uL Sodium (137-145) mmol/L Potassium (3.5-5.1) mmol/L Chloride (98-107) mmol/L Carbon Dioxide (22-30) mmol/L Anion Gap mmol/L BUN (9-20) mg/dL Creatinine (0.66-1.25) mg/dL Est GFR (CKD-EPI)AfAm (>60 ml/min/1.73 sqM) Est GFR (CKD-EPI)NonAf (>60 ml/min/1.73 sqM) Glucose (74-99) mg/dL Calcium (8.4-10.2) mg/dL Magnesium (1.6-2.3) mg/dL Total Bilirubin (0.2-1.3) mg/dL AST (17-59) U/L ALT (4-49) U/L Alkaline Phosphatase (38-126) U/L Troponin I (0.000-0.034) ng/mL NT-Pro-B Natriuret Pep 3900 pg/mL Total Protein (6.3-8.2) g/dL Albumin (3.5-5.0) g/dL Urine Color Colorless Urine Appearance Clear (Clear) Urine pH 7.5 (5.0-8.0) Ur Specific [place] 1.011 (1.001-1.035) Urine Protein Negative (Negative) Urine Glucose (UA) Negative (Negative) Urine Ketones Negative (Negative) Urine Blood Negative (Negative) Urine Nitrite Negative (Negative) Urine Bilirubin Negative (Negative) Urine Urobilinogen <2.0 (<2.0) mg/dL Ur Leukocyte Esterase Negative (Negative) Coronavirus (PCR) Not Detected (Not Detectd) - Radiology Data Radiology results: report reviewed, image reviewed Disposition Clinical Impression: Weakness, CHF (congestive heart failure) Disposition: ADMITTED IP TO THIS [facility] Condition: Stable Referrals: Manas Cervantes Jr, [Primary Care Provider] - 1-2 days Time of Disposition: 14:47 Decision to Admit Reason: Admit from EC
[2023-04-25] MEDS ORDERED: NALOXONE 0.4 MG/ML 1 ML VIAL IV PRN (14:48)
[2023-04-25] MEDS ORDERED: ACETAMINOPHEN TAB 325 MG TAB PO PRN (14:48)
[2023-04-25] MEDS ORDERED: FUROSEMIDE 10 MG/ML 2 ML VIAL IV ONE (14:52)
[2023-04-25] MEDS: ALPRAZolam 1 MG TAB PO SCH (15:49)
[2023-04-25] MEDS: lisinopriL 10 MG TAB PO SCH (20:18)
[2023-04-25] MEDS: QUEtiapine 50 MG TAB PO SCH (20:18)
[2023-04-25] MEDS: METOPROLOL TARTRATE 50 MG TAB PO SCH (20:18)
[2023-04-26] MEDS: ALPRAZolam 1 MG TAB PO SCH (02:56)
--- NOTE | 2023-04-26 03:32 | P.CNPUL ---
History of Present Illness Consult date: 04/26/23 Requesting physician: Kassy August Reason for consult: dyspnea Chief complaint: Weakness and falls History of present illness: I am seeing this patient in consultation today 04/26/2023 after the patient was found to be short of breath and hypoxic while emergency room. Patient originally came to the emergency room for generalized weakness and falls. Patient is a 67-year-old white male with past medical history significant for coronary artery disease with previous GA and coronary stents, congestive heart failure and AICD, atrial fibrillation, diabetes mellitus, CVA/TIA, hyperlipidemia, hypertension, hypothyroidism, obstructive sleep apnea, and is an ex tobacco smoker. His PCP is Dr. Manas Cervantes. Patient is a poor historian, and much of this information is taken from chart review and patient's son. Patient's son states the patient fell multiple times yesterday, and that he thinks the patient may have hit his head. I am unsure what the patient's baseline mental status is, but i'm told he has some baseline dementia. Patient himself denies hitting his head. There is no obvious facial or head trauma to the head. He has not been using his cane to walk. He has right sided weakness from a previous stroke. Patient is anticoagulated on Xarelto. Patient denies any complaints of shortness of breath. He is currently, however, on 4 L/m nasal cannula currently. He denies using home O2. Denies any history of lung disease. Denies any fever, chills, cough, chest pain. Denies heart palpitations, orthopnea, lower extremity edema. Chest x-ray on arrival showed pulmonary vascular congestion and cardiomegaly. NT proBNP was elevated at 3900. Troponin 0.033. EKG currently shows normal sinus rhythm without any obvious acute ischemic changes. There is an intraventricular conduction delay. CBC on arrival shows mild leukocytosis with a WBC count of 13.2, hemoglobin 15.5, hematocrit 47, platelets 134. BMP on arrival was unremarkable. Urinalysis not concerning for UTI. COVID-19 negative. Afebrile. Patient is being monitored on the general medical floor. Review of Systems REVIEW OF SYSTEMS: CONSTITUTIONAL: Denies any recent significant weight loss or weight gain. EYES: Denies change in vision. EARS, NOSE, MOUTH, THROAT: Denies headaches, denies sore throat. CARDIOVASCULAR: Denies chest pain, palpitations or syncopal episodes. RESPIRATORY: Denies shortness of breath, cough, congestion or hemoptysis. GASTROINTESTINAL: Denies change in appetite, abdominal pain, nausea and vomiting, or diarrhea GENITOURINARY: Denies hematuria, denies infections. MUSKULOSKELETAL: Denies pain, denies swelling. INTEGUMENTARY: Denies rash, denies eczema. NEUROLOGICAL: Denies recent memory loss, no recent seizure activity. PSYCHIATRIC: Denies anxiety, denies depression. HEMATOLOGIC/LYMPHATIC: Denies anemia, denies enlarged lymph node Past Medical History Past Medical History: Coronary Artery Disease (CAD), Chest Pain / Angina, CVA/TIA, Diabetes Mellitus, Deep Vein Thrombosis (DVT), GERD/Reflux, Hyperlipidemia, Hypertension, Myocardial Infarction (GA), Osteoarthritis (OA), Thyroid Disorder, Vascular Disorder Additional Past Medical History / Comment(s): GA in 1988 &2013, hypothyroid, (pt poor historian), right side weakness from stroke Last Myocardial Infarction Date:: 1988 History of Any Multi-Drug Resistant Organisms: None Reported Past Surgical History: Back Surgery, Heart Catheterization With Stent, Pacemaker Additional Past Surgical History / Comment(s): Lt leg multiple surgeries for trauma, Rt finger surgery, arthroscopic L knee surgery , back injections for pain, L4-L5, back surgery, myelogram 2016 Past Anesthesia/Blood Transfusion Reactions: No Reported Reaction Date of Last Stent Placement:: 08/19/15 Type of Cardiac Device: Permanent Pacemaker, AICD Device Placement Date:: 2015 Past Psychological History: Anxiety Additional Psychological History / Comment(s): reports feels angry frequently since was taken off xanax Smoking Status: Former smoker Past Alcohol Use History: None Reported Additional Past Alcohol Use History / Comment(s): Pt states he started smoking in 1967 and was up to a 2 ppd smoker. He quit in 2004. Past Drug Use History: None Reported Additional Drug Use History / Comment(s): Uses medical marijuana, aware to sustain 24 hours prior to procedure - Past Family History Mother Family Medical History: Cancer Additional Family Medical History / Comment(s): Mother had renal cancer. She at age 72 from this. Father Family Medical History: Coronary Artery Disease (CAD) Additional Family Medical History / Comment(s): Father was a 3 ppd smoker. He at age 60 yrs of ASHD. Medications and Allergies Home Medications Medication Instructions Recorded Confirmed Type Acyclovir [Zovirax] 200 mg PO BID 08/07/15 04/25/23 History Clopidogrel [Plavix] 75 mg PO DAILY 08/07/15 04/25/23 History Torsemide [Demadex] 5 mg PO DAILY 12/22/17 04/25/23 History glipiZIDE [Glucotrol] 5 mg PO DAILY 12/22/17 04/25/23 History ALPRAZolam [Xanax] 1 mg PO TID 08/20/22 04/25/23 History Atorvastatin [Lipitor] 80 mg PO DAILY 08/20/22 04/25/23 History Metoprolol Tartrate [Lopressor] 100 mg PO BID 08/20/22 04/25/23 History lisinopriL [Zestril] 10 mg PO BID 08/20/22 04/25/23 History Levothyroxine Sodium [Synthroid] 150 mcg PO DAILY 04/25/23 04/25/23 History QUEtiapine [SEROquel] 50 mg PO HS 04/25/23 04/25/23 History Rivaroxaban [Xarelto] 15 mg PO DAILY 04/25/23 04/25/23 History Allergies Allergy/AdvReac Type Severity Reaction Status Date / Time hydrocodone Allergy Itching Verified 04/25/23 13:01 Physical Exam Vitals: Vital Signs Temp Pulse Pulse Resp BP BP Pulse Ox 04/25/23 21:05 98.1 F 59 L 16 175/87 96 04/25/23 18:00 68 20 156/85 96 04/25/23 15:22 65 18 96 04/25/23 13:45 85 L 04/25/23 10:49 68 24 144/90 95 04/25/23 09:29 73 154/81 04/25/23 09:19 93 L 04/25/23 07:37 98.8 F 79 18 166/88 92 L Intake and Output 04/25/23 04/25/23 04/26/23 14:59 22:59 06:59 Output Total 800 Balance -800 Output: Urine 800 Other: # Voids 1 Weight 77.111 kg 77.111 kg GENERAL EXAM: Drowsy, 67-year-old white male , comfortable in no apparent distress. HEAD: Normocephalic and atraumatic EYES: Normal reaction of pupils, equal size. NOSE: Clear with pink turbinates. THROAT: No erythema or exudates. NECK: No masses, no JVD. CHEST: No chest wall deformity. LUNGS: Equal air entry with bibasilar dry crackles. No wheeze, rhonchi or dullness. On 4 L per min nasal cannula. No conversational dyspnea or accessory muscle use.. CVS: S1 and S2 normal with no audible murmur, regular rhythm. No extra heart sounds ABDOMEN: No hepatosplenomegaly, active bowel sounds, no guarding or rigidity. SPINE: No scoliosis or deformity SKIN: No rashes CENTRAL NERVOUS SYSTEM: Patient is not cooperative with exam at this time. Appears to be moving all 4 extremities. EXTREMITIES: There is no peripheral edema, clubbing, or cyanosis. Peripheral pulses are intact. Results - Laboratory Findings CBC and BMP: 04/25/23 08:06 04/25/23 08:06 Abnormal lab findings: Abnormal Labs 04/25/23 04/25/23 08:06 08:06 WBC 13.2 H Plt Count 134 L Neutrophils # 11.5 H Lymphocytes # 0.8 L Glucose 136 H Total Bilirubin 1.4 H - Diagnostic Findings Chest x-ray: image reviewed Assessment and Plan Assessment: Acute hypoxemic respiratory failure, secondary to a mild exacerbation of systolic congestive heart failure. Chest x-ray on arrival showed mild pulmonary vascular congestion and cardiomegaly. NT proBNP was elevated at 3900. Generalized weakness Frequent falls Altered mental status, I am told the patient may have baseline history of dementia Mild leukocytosis, without any obvious infectious etiology History of CVA/TIA Coronary artery disease with previous GA and coronary stents History of systolic congestive heart failure and ventricular tachycardia status/post AICD implantation History of atrial fibrillation, currently in normal sinus rhythm, anticoagulated on Xarelto Diabetes mellitus type 2 Hyperlipidemia Benign essential hypertension Objective sleep apnea, patient's family states that he is not compliant with CPAP Hypothyroidism Former tobacco smoker Plan: Patient's medications, labs, chest x-ray reviewed Continue supplemental oxygen Lasix 20 mg IVP added BID Obtain stat CT of of the brain and C-spine without contrast. I did contact the patient's son, who states the patient did fall prior to coming the ER. He states that he heard a smack on the floor from the other room. Expresses concerns that he may have hit his head, and had some trouble speaking afterword. No obvious facial or head trauma on my examination. Patient does take Xarelto on outpatient basis. Hold benzodiazepines Neurology has already been consulted. We will continue to follow, and further recommendations are forthcoming I have personally seen and examined the patient, performed the documentation and the assessment and plan as written. Number of minutes spent on the visit:20
--- NOTE | 2023-04-26 04:36 | CT ---
EXAM: CT Head Without Intravenous Contrast CLINICAL HISTORY: ITS.REASON CT Reason: altered mental status; fall TECHNIQUE: Axial computed tomography images of the head/brain without intravenous contrast. CTDI is 58 mGy and DLP is 1319.1 mGy-cm. This CT exam was performed using one or more of the following dose reduction techniques: automated exposure control, adjustment of the mA and/or kV according to patient size, and/or use of iterative reconstruction technique. COMPARISON: No relevant prior studies available. FINDINGS: Brain: No hemorrhage or mass effect. Encephalomalacia of the left periventricular white matter. Ventricles: No hydrocephalus. Bones/joints: Unremarkable. Soft tissues: Unremarkable. Sinuses: No air fluid level. Mastoid air cells: Clear. IMPRESSION: No acute hemorrhage, hydrocephalus, or mass effect. EXAM: CT Cervical Spine Without Intravenous Contrast CLINICAL HISTORY: ITS.REASON CT Reason: altered mental status; fall TECHNIQUE: Axial computed tomography images of the cervical spine without intravenous contrast. CTDI is 28.3 mGy and DLP is 627.5 mGy-cm. This CT exam was performed using one or more of the following dose reduction techniques: automated exposure control, adjustment of the mA and/or kV according to patient size, and/or use of iterative reconstruction technique. COMPARISON: No relevant prior studies available. FINDINGS: Vertebrae: No acute fracture. Discs/spinal canal/neural foramina: degenerative changes. Severe spinal canal stenosis C6-7 from degenerative changes Soft tissues: No prevertebral swelling. IMPRESSION: No acute fracture or subluxation.
[2023-04-26] MEDS: LEVOTHYROXINE 75 MCG TAB PO SCH (06:24)
[2023-04-26] MEDS ORDERED: FUROSEMIDE 10 MG TAB PO SCH (09:00)
[2023-04-26] MEDS ORDERED: RIVAROXABAN 15 MG TAB PO SCH (09:00)
[2023-04-26] MEDS ORDERED: CLOPIDOGREL 75 MG TAB PO SCH (09:00)
[2023-04-26] MEDS ORDERED: FUROSEMIDE 10 MG/ML 2 ML VIAL IV SCH (09:00)
[2023-04-26] MEDS: lisinopriL 10 MG TAB PO SCH ×2 (09:08→21:34)
[2023-04-26] MEDS: RIVAROXABAN 20 MG TAB PO SCH (09:09)
[2023-04-26] MEDS: METOPROLOL TARTRATE 50 MG TAB PO SCH ×2 (09:09→21:34)
[2023-04-26] MEDS: DAPAGLIFLOZIN PROPANEDIOL 10 MG TABLET PO SCH (09:09)
[2023-04-26] MEDS: glipiZIDE 5 MG TAB PO SCH (09:09)
[2023-04-26] MEDS: ATORVASTATIN 80 MG TAB PO SCH (09:10)
[2023-04-26] MEDS: FUROSEMIDE 10 MG/ML 2 ML VIAL IV SCH ×2 (09:34→21:39)
--- NOTE | 2023-04-26 09:34 | P.CRDCN ---
History of Present Illness Consult date: 04/26/23 Consult reason: congestive heart failure History of present illness: History of present illness: This is a 67-year-old male patient of Dr. Bhatti with past medical history of ischemic cardiomyopathy with EF 45%, history of ventricular fibrillation status post AICD, paroxysmal atrial fibrillation, infrarenal aortic aneurysm with mural thrombus, chronic kidney disease stage IIIB. we have been asked to evaluate the patient for CHF. patient states that he had 2 falls recently one was yesterday where he fell backwards. He states he lost his balance. No shortness of breath and no chest pain or pressure. He denies having any dizziness, no palpitations. He does have chronic lower extremity edema left-sided. He denies any syncopal episodes. No cough or fevers. No wheezing. No seizure activity. He does have history of CVA. Patient is not normally active as he states his bones are achy. Patient has been started on IV Lasix 20 mg 1 in the ER and then every 12 hours. Patient is currently on 4 L nasal cannula. EKG sinus rhythm Chest x-ray: cardiomegaly and mild pulmonary vascular congestion. WBC 13.2, hemoglobin 15.5, platelet count 134. Electrolytes and renal function are normal. Blood sugar 136. Total bilirubin 1.4 otherwise liver function tests are normal. Troponin negative 1. ProBNP 3900. Urinalysis negative. Home cardiac medications: atorvastatin 80 mg daily, Plavix 75 mg daily, lisinopril 10 mg twice daily, Lopressor 100 mg twice daily, Xarelto 50 mg daily, Demadex 5 mg daily, patient is also on levothyroxine 150 g daily Cardiac catheterization 07/2015 70% ostial LAD, 80% ostial OM1, 100% mid RCA status post stent of the proximal LAD Lexiscan stress test 04/2019 negative stress test, fixed defect in the inferior wall suggestive of previous NM. EF 40%. Review Of Systems: At the time of my evaluation: Constitutional: No fever, no chills. + weakness. EENT: No headache. No dizziness. Lungs: No shortness of breath, cough, no sputum production. No wheezing. Cardiovascular: No chest pain, + chronic left lower extremity edema. No palpitations. No paroxysmal nocturnal dyspnea. No orthopnea. No l ightheadedness or dizziness. No syncopal episodes. Abdominal: No abdominal pain. No nausea, vomiting. No diarrhea. No constipation. No bloody or tarry stools. Genitourinary: No dysuria.. No urinary retention. Musculoskeletal: No myalgias. No muscle weakness, + frequent falls. Integumentary: No wounds. No rash. No unusual bruising. Neurologic: No aphasia. No facial droop. No change in mentation. Physical examination: Gen: This is a 67 year old male resting in bed and appears to be in no acute distress. VS: reviewed HEENT: Head is atraumatic, normocephalic. Pupils equal, round. Sclerae is anicteric. NECK: Supple. No JVD. LUNGS: Clear to auscultation. No wheezes or rhonchi. No intercostal retractions. HEART: Regular rate and rhythm. No murmur. ABDOMEN: Soft No tenderness. EXTREMITIES: No pedal edema. No calf tenderness. NEUROLOGICAL: Patient is awake, alert and oriented x3. Assessment: Acute on chronic systolic heart failure Falls Ischemic cardiomyopathy with EF of 45% Coronary artery disease with previous stent to the proximal LAD History of ventricular fibrillations status post AICD Paroxysmal atrial fibrillation Infrarenal aortic aneurysm with mural thrombus Diabetes mellitus type 2 Chronic kidney disease stage III B History of CVA Obstructive sleep apnea and not compliant with CPAP Hypothyroidism Plan: continue patient's home cardiac medications considering the following changes continue patient on IV Lasix Change Xarelto back to 20 mg daily and discontinue Plavix (this was discontinued at his last office visit) Start patient on Farxiga 10 mg daily and monitor closely for hypoglycemia with glipizide, may considering discontinuing glipizide Repeat blood work tomorrow and obtain TSH Obtain 2-D echocardiogram and Doppler study to assess cardiac structure and function May transition IV Lasix to oral tomorrow depending on patient's response. Further recommendations to follow based upon clinical course Thank you kindly for this consultation. Nurse practitioner note has been reviewed, I agree with documented findings and plan of care. Patient was seen and examined. Past Medical History Past Medical History: Coronary Artery Disease (CAD), Chest Pain / Angina, CVA/TIA, Diabetes Mellitus, Deep Vein Thrombosis (DVT), GERD/Reflux, Hyperlipidemia, Hypertension, Myocardial Infarction (NM), Osteoarthritis (OA), Thyroid Disorder, Vascular Disorder Additional Past Medical History / Comment(s): NM in 1988 &2013, hypothyroid, (pt poor historian), right side weakness from stroke Last Myocardial Infarction Date:: 1988 History of Any Multi-Drug Resistant Organisms: None Reported Past Surgical History: Back Surgery, Heart Catheterization With Stent, Pacemaker Additional Past Surgical History / Comment(s): Lt leg multiple surgeries for trauma, Rt finger surgery, arthroscopic L knee surgery , back injections for pain, L4-L5, back surgery, myelogram 2016 Past Anesthesia/Blood Transfusion Reactions: No Reported Reaction Date of Last Stent Placement:: 08/19/15 Type of Cardiac Device: Permanent Pacemaker, AICD Device Placement Date:: 2015 Past Psychological History: Anxiety Additional Psychological History / Comment(s): reports feels angry frequently since was taken off xanax Smoking Status: Former smoker Past Alcohol Use History: None Reported Additional Past Alcohol Use History / Comment(s): Pt states he started smoking in 1967 and was up to a 2 ppd smoker. He quit in 2004. Past Drug Use History: None Reported Additional Drug Use History / Comment(s): Uses medical marijuana, aware to sustain 24 hours prior to procedure - Past Family History Mother Family Medical History: Cancer Additional Family Medical History / Comment(s): Mother had renal cancer. She at age 72 from this. Father Family Medical History: Coronary Artery Disease (CAD) Additional Family Medical History / Comment(s): Father was a 3 ppd smoker. He at age 60 yrs of ASHD. Medications and Allergies Home Medications Medication Instructions Recorded Confirmed Type Acyclovir [Zovirax] 200 mg PO BID 08/07/15 04/25/23 History Clopidogrel [Plavix] 75 mg PO DAILY 08/07/15 04/25/23 History Torsemide [Demadex] 5 mg PO DAILY 12/22/17 04/25/23 History glipiZIDE [Glucotrol] 5 mg PO DAILY 12/22/17 04/25/23 History ALPRAZolam [Xanax] 1 mg PO TID 08/20/22 04/25/23 History Atorvastatin [Lipitor] 80 mg PO DAILY 08/20/22 04/25/23 History Metoprolol Tartrate [Lopressor] 100 mg PO BID 08/20/22 04/25/23 History lisinopriL [Zestril] 10 mg PO BID 08/20/22 04/25/23 History Levothyroxine Sodium [Synthroid] 150 mcg PO DAILY 04/25/23 04/25/23 History QUEtiapine [SEROquel] 50 mg PO HS 04/25/23 04/25/23 History Rivaroxaban [Xarelto] 15 mg PO DAILY 04/25/23 04/25/23 History Allergies Allergy/AdvReac Type Severity Reaction Status Date / Time hydrocodone Allergy Itching Verified 04/25/23 13:01 Physical Exam Vitals: Vital Signs Temp Pulse Pulse Resp BP BP Pulse Ox 04/26/23 02:00 98.7 F 108 H 16 122/69 97 04/25/23 21:05 98.1 F 59 L 16 175/87 96 04/25/23 21:00 18 04/25/23 18:00 68 20 156/85 96 04/25/23 15:22 65 18 96 04/25/23 13:45 85 L 04/25/23 10:49 68 24 144/90 95 04/25/23 09:29 73 154/81 04/25/23 09:19 93 L 04/25/23 07:37 98.8 F 79 18 166/88 92 L Intake and Output 04/25/23 04/26/23 04/26/23 22:59 06:59 14:59 Intake Total 590 Output Total 800 Balance -800 590 Intake: Oral 590 Output: Urine 800 Other: Voiding Method Urinal Incontinent # Voids 1 1 Weight 77.111 kg Results 04/25/23 08:06 04/25/23 08:06 Cardiac Enzymes 04/25/23 04/25/23 Range/Units 08:06 08:06 AST 29 (17-59) U/L Troponin I 0.033 (0.000-0.034) ng/mL CBC 04/25/23 Range/Units 08:06 WBC 13.2 H (3.8-10.6) k/uL RBC 4.99 (4.30-5.90) m/uL Hgb 15.5 (13.0-17.5) gm/dL Hct 47.0 (39.0-53.0) % Plt Count 134 L (150-450) k/uL Comprehensive Metabolic Panel 04/25/23 Range/Units 08:06 Sodium 141 (137-145) mmol/L Potassium 4.1 (3.5-5.1) mmol/L Chloride 105 (98-107) mmol/L Carbon Dioxide 25 (22-30) mmol/L BUN 17 (9-20) mg/dL Creatinine 0.88 (0.66-1.25) mg/dL Glucose 136 H (74-99) mg/dL Calcium 8.9 (8.4-10.2) mg/dL AST 29 (17-59) U/L ALT 20 (4-49) U/L Alkaline Phosphatase 100 (38-126) U/L Total Protein 7.4 (6.3-8.2) g/dL Albumin 3.7 (3.5-5.0) g/dL Current Medications Generic Name Dose Route Start Last Admin Trade Name Freq PRN Reason Stop Dose Admin Acetaminophen 650 mg 04/25/23 14:48 Acetaminophen Tab 325 Mg Tab PO Q6HR PRN Mild Pain or Fever > 100.5 Atorvastatin Calcium 80 mg 04/26/23 09:00 Atorvastatin 80 Mg Tab PO DAILY [facility] Clopidogrel Bisulfate 75 mg 04/26/23 09:00 Clopidogrel 75 Mg Tab PO DAILY [facility] Furosemide 20 mg 04/26/23 09:00 Furosemide 10 Mg/Ml 2 Ml Vial IV Q12HR [facility] Glipizide 5 mg 04/26/23 09:00 Glipizide 5 Mg Tab PO DAILY [facility] Levothyroxine Sodium 150 mcg 04/26/23 06:30 04/26/23 06:24 Levothyroxine 75 Mcg Tab PO 150 mcg DAILY@0630 AIDEE Administration Lisinopril 10 mg 04/25/23 21:00 04/25/23 20:18 Lisinopril 10 Mg Tab PO 10 mg BID AIDEE Administration Metoprolol Tartrate 100 mg 04/25/23 21:00 04/25/23 20:18 Metoprolol Tartrate 50 Mg Tab PO 100 mg BID AIDEE Administration Naloxone HCl 0.2 mg 04/25/23 14:48 Naloxone 0.4 Mg/Ml 1 Ml Vial IV Q2M PRN Opioid Reversal Quetiapine Fumarate 50 mg 04/25/23 21:00 04/25/23 20:18 Quetiapine 50 Mg Tab PO 50 mg HS AIDEE Administration Rivaroxaban 15 mg 04/26/23 09:00 Rivaroxaban 15 Mg Tab PO DAILY [facility] Protocol Intake and Output 04/25/23 04/26/23 04/26/23 22:59 06:59 14:59 Intake Total 590 Output Total 800 Balance -800 590 Intake: Oral 590 Output: Urine 800 Other: Voiding Method Urinal Incontinent # Voids 1 1 Weight 77.111 kg 04/25/23 08:06 04/25/23 08:06
--- NOTE | 2023-04-26 15:39 | P.CNNES ---
History of Present Illness Consult date: 04/26/23 Requesting physician: Kassy August Reason for Consult: Weakness History of Present Illness: Patient is a 67-year-old right-handed male came to the hospital by ambulance yesterday at 6:16 AM for a fall. Patient is not a very good historian. He says "I fell on my back", due to losing balance. Otherwise he does not have balance issue. Patient states that he had history of a stroke on with some residual numbness of the medial 3 fingers and medial 3 digits toes of the right foot. No residual weakness. Patient also states that he has history of 2 MRI, at age 33 and then 58. He has been using cane for 6 years, but a walker since 2013. He says that he lives with his son and his girlfriend. He denies any stroke symptoms like slurred speech, facial droop, or any focal numbness tingling or weakness or visual disturbance. As per EMS flow sheet, when they arrived, patient had fallen. According to the family, patient has been getting weaker every day. This is the second day in a row where he had fallen and cannot get himself up anymore. Patient does have a stroke history and his speech is slurring more than normal according to the family. 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 Patient had a fast ED score of 0 at this time. Cardiac monitoring showing atrial fibril lation. Patient placed on portable oxygen at 2 L per minute via nasal cannula. Saturation was at 88%. Vital signs the scene blood pressure 176/85 pulse rate 35, respiration 18, saturation 88% EKG shows sinus rhythm. Chest x-ray showed cardiomegaly and mild pulmonary vascular congestion. Correlate with BNP for congestive heart failure. CT head showed no acute hemorrhage, hydrocephalus or mass effect. I personally reviewed CT head, agree with the findings. However there is evidence of old encephalomalacia involving the left parietal lobe. CT of the cervical spine showed no acute fracture or subluxation. Patient has been seen by cardiology, diagnosed with acute on chronic systolic he art failure, falls, ischemic cardiomyopathy with EF of 45%. CAD with history of cardiac stenting to the proximal LAD, history of ventricular fibrillation status post AICD, paroxysmal atrial fibrillation, infrarenal aortic aneurysm with mural thrombus, diabetes type 2, chronic renal disease, history of CVA, PRASAD, not compliant with CPAP and hypothyroidism. Patient was started on Xarelto 20 mg daily (instead of Xarelto 15 mg) and Plavix was discontinued. Review of Systems Constitutional: Denies chills, Denies fever Eyes: denies blurred vision, denies diplopia, denies pain Ears: deny: decreased hearing, ear discharge Ears, nose, mouth and throat: Denies headache, Denies sore throat Cardiovascular: Denies chest pain, Denies shortness of breath Respiratory: Reports cough with sputum, Denies wheezing Gastrointestinal: Denies abdominal pain, Denies diarrhea, Denies nausea, Denies vomiting Genitourinary: Denies incontinence, Denies urinary frequency Musculoskeletal: Reports low back pain (9, localized), Denies neck pain Integumentary: Denies pruritus, Denies rash Neurological: Reports as per HPI Psychiatric: Denies anxiety, Denies depression Endocrine: Denies fatigue, Denies weight change Past Medical History Past Medical History: Coronary Artery Disease (CAD), Chest Pain / Angina, CVA/TIA, Diabetes Mellitus, Deep Vein Thrombosis (DVT), GERD/Reflux, Hyperlipidemia, Hypertension, Myocardial Infarction (VT), Osteoarthritis (OA), Thyroid Disorder, Vascular Disorder Additional Past Medical History / Comment(s): VT in 1988 &2013, hypothyroid, (pt poor historian), right side weakness from stroke Last Myocardial Infarction Date:: 1988 History of Any Multi-Drug Resistant Organisms: None Reported Past Surgical History: Back Surgery, Heart Catheterization With Stent, Pacemaker Additional Past Surgical History / Comment(s): Lt leg multiple surgeries for trauma, Rt finger surgery, arthroscopic L knee surgery , back injections for pain, L4-L5, back surgery, myelogram 2016 Past Anesthesia/Blood Transfusion Reactions: No Reported Reaction Date of Last Stent Placement:: 08/19/15 Type of Cardiac Device: Permanent Pacemaker, AICD Device Placement Date:: 2015 Past Psychological History: Anxiety Additional Psychological History / Comment(s): reports feels angry frequently since was taken off xanax Smoking Status: Former smoker Past Alcohol Use History: None Reported Additional Past Alcohol Use History / Comment(s): Pt states he started smoking in 1967 and was up to a 2 ppd smoker. He quit in 2004. Past Drug Use History: None Reported Additional Drug Use History / Comment(s): Uses medical marijuana, aware to sustain 24 hours prior to procedure - Past Family History Mother Family Medical History: Cancer Additional Family Medical History / Comment(s): Mother had renal cancer. She at age 72 from this. Father Family Medical History: Coronary Artery Disease (CAD) Additional Family Medical History / Comment(s): Father was a 3 ppd smoker. He at age 60 yrs of ASHD. Medications and Allergies Home Medications Medication Instructions Recorded Confirmed Type Acyclovir [Zovirax] 200 mg PO BID 08/07/15 04/25/23 History Clopidogrel [Plavix] 75 mg PO DAILY 08/07/15 04/25/23 History Torsemide [Demadex] 5 mg PO DAILY 12/22/17 04/25/23 History glipiZIDE [Glucotrol] 5 mg PO DAILY 12/22/17 04/25/23 History ALPRAZolam [Xanax] 1 mg PO TID 08/20/22 04/25/23 History Atorvastatin [Lipitor] 80 mg PO DAILY 08/20/22 04/25/23 History Metoprolol Tartrate [Lopressor] 100 mg PO BID 08/20/22 04/25/23 History lisinopriL [Zestril] 10 mg PO BID 08/20/22 04/25/23 History Levothyroxine Sodium [Synthroid] 150 mcg PO DAILY 04/25/23 04/25/23 History QUEtiapine [SEROquel] 50 mg PO HS 04/25/23 04/25/23 History Rivaroxaban [Xarelto] 15 mg PO DAILY 04/25/23 04/25/23 History Allergies Allergy/AdvReac Type Severity Reaction Status Date / Time hydrocodone Allergy Itching Verified 04/25/23 13:01 Physical Examination - Vital Signs Vital Signs: Vital Signs Temp Pulse Pulse Resp BP BP Pulse Ox 04/26/23 07:36 99.1 F 50 L 18 123/71 97 04/26/23 06:50 97.9 F 49 L 18 146/79 98 04/26/23 02:00 98.7 F 108 H 16 122/69 97 04/25/23 21:05 98.1 F 59 L 16 175/87 96 04/25/23 21:00 18 04/25/23 18:00 68 20 156/85 96 04/25/23 15:22 65 18 96 04/25/23 13:45 85 L 04/25/23 10:49 68 24 144/90 95 Intake and Output 04/25/23 04/26/23 04/26/23 22:59 06:59 14:59 Intake Total 590 Output Total 800 Balance -800 590 Intake: Oral 590 Output: Urine 800 Other: Voiding Method Urinal Incontinent # Voids 1 1 Weight 77.111 kg Patient is an elderly male, in no acute distress. Patient is alert awake oriented to time place and person. Patient has slightly slow mentation. He at first said was June 26, then said was May 25, then he could recall that it is Halloween therefore it is 04/26/2023. He knows his date of and that he is in [facility] in [place] and name of the current president. Speech and language functions are normal. Patient can name and repeat very well. No aphasia or dysarthria. Attention, concentration is intact and fund of knowledge is limited. On cranial nerve examination, pupils are equal, round and reacting to light, visual polanco are full on confrontation, with no neglect on double simultaneous stimulation. Extraocular muscles are intact with no nystagmus. Face is symmetric, tongue protrudes to the midline. Palatal elevation and sensation normal, hearing and shoulder shrug normal, facial sensation normal. On muscle strength testing, there is no pronator drift and the strength is normal in arms and legs distally and proximally except left hip flexion which is 4 related to previous accident in the long past. He has some surgery over the left thigh from that accident. Deep tendon reflexes are (right/left) biceps 2/2, brachioradialis 1/1, knees 2/0, ankles 0/0 and plantars are flat bilaterally. Sensory to touch is equal with no neglect on double simultaneous stimulation. Cerebellar function showed no ataxia for [id number] testing. No dysdiadochokinesia. No ataxia for [id number] testing on either side. Tone and bulk of muscles normal. Gait deferred.. On general examination, there is no carotid bruit or murmur, S1-S2 audible. Chest is clear on consultation. Abdomen is soft nontender. No organomegaly, bowel sounds present. Peripheral pulses are present. No peripheral edema. Patient has some skin tear of the right lateral elbow from previous fall. Results - Laboratory Findings CBC and BMP: 04/25/23 08:06 04/27/23 05:59 Abnormal Lab Findings: Abnormal Labs 04/25/23 04/25/23 08:06 08:06 WBC 13.2 H Plt Count 134 L Neutrophils # 11.5 H Lymphocytes # 0.8 L Glucose 136 H Total Bilirubin 1.4 H Assessment and Plan Assessment: * Status post fall, perhaps due to losing balance. * Chronic left leg weakness related to previous multiple surgeries for trauma * History of CVA, with residual numbness of the right medial hand and foot. * Paroxysmal atrial fibrillation * History of ventricular fibrillation, status post AICD * History of infrarenal aortic aneurysm with mural thrombus * Diabetes type 2 * Chronic renal disease * Obstructive sleep apnea * Ischemic cardiomyopathy * Chronic left leg weakness Plan: * Patient has chronic balance disorder related to previous chronic left leg weakness from previous trauma to the left thigh with multiple surgeries. Patient also has history of back surgery, also CVA with residual numbness of the right medial hand and foot. Suspect patient has chronic balance disorder. Patient always uses either cane or walker for ambulation. * Patient has atrial fibrillation, Xarelto changed from 15 to 20 mg daily per cardiology. * Patient's TSH is elevated 6.22 (0.46-4.68), with normal free T4 1.70. IM to address abnormal thyroid functions. * We will check B12, folate, lipid panel, hemoglobin A1c. Patient's last hemoglobin A1c was 9.1 on 08/19/2015. * Patient cannot have MRI because of presence of AICD. * PT, OT, evaluate gait. Patient should consistently use walker to prevent fal ls. Suspect a cane may not help prevent falls. * I tried to contact patient's son multiple times to obtain collateral history about his falls and memory functions, but he did not picker/puller the phone. Left a message on his voicemail with my return cell phone number. * Neurology will follow. Thank you for the consult.
[2023-04-26] MEDS ORDERED: DEXTROSE 50% SYRINGE 50 ML IVP PRN ×2 (16:48)
--- NOTE | 2023-04-26 16:57 | P.HPIM ---
History of Present Illness H&P Date: 04/26/23 Chief Complaint: Shortness of breath, falls, weakness This is a 67-year-old gentleman with past medical history significant for CAD, RI, ventricular fibrillation status post AICD,ischemic cardiomyopathy with EF 45% ,cardiac catheterization with stents,hypertension, paroxysmal atrial fibrillation, infrarenal aortic aneurysm with mural thrombus, peripheral vascular disease, left leg multiple surgeries for trauma, chronic back pain CVA/TIA, diabetes mellitus, chronic kidney disease stage IIIB and DVT, gastroesophageal reflux disease, hypothyroidism,Peripheral vascular disease, anxiety, former nicotine dependence, marijuana use, presented to the ER with complaints of dyspnea, increased weakness, falls 2 with last fall occurring yesterday and multiple other medical issues. Reports he fell backwards related to losing his balance. Denies head trauma. Denies syncope. Denies chest pain, palpitations or shortness of breath. Denies lightheadedness, dizziness or focal deficits. Denies fevers chills or congestion. Denies wearing O2 at home, currently requiring 4 L nasal cannula to maintain O2 sats in the 90s. Patient is a vague historian. Family reported to PCP concerns for patient having underlying dementia, forgetfulness. Right-sided weakness from prior stroke, reports he uses a walker for gait dysfunction. Chest x-ray reported cardiomegaly, mild pulmonary vascular congestion. ProBNP 3900. Troponin 0.033. EKG reports normal sinus rhythm with intraventricular conduction delay. Afebrile, WBC 13.2, hemoglobin 15.5, platelets 134. BMP unremarkable. UA negative. COVID-19(PCR) not detected. Maintained on IV push Lasix. Review of Systems ROS Statement: Those systems with pertinent positive or pertinent negative responses have been documented in the HPI. ROS Other: All systems not noted in ROS Statement are negative. Past Medical History Past Medical History: Coronary Artery Disease (CAD), Chest Pain / Angina, CVA/TIA, Diabetes Mellitus, Deep Vein Thrombosis (DVT), GERD/Reflux, Hyperlipidemia, Hypertension, Myocardial Infarction (RI), Osteoarthritis (OA), Thyroid Disorder, Vascular Disorder Additional Past Medical History / Comment(s): RI in 1988 &2013, hypothyroid, (pt poor historian), right side weakness from stroke Last Myocardial Infarction Date:: 1988 History of Any Multi-Drug Resistant Organisms: None Reported Past Surgical History: Back Surgery, Heart Catheterization With Stent, Pacemaker Additional Past Surgical History / Comment(s): Lt leg multiple surgeries for trauma, Rt finger surgery, arthroscopic L knee surgery , back injections for pain, L4-L5, back surgery, myelogram 2016 Past Anesthesia/Blood Transfusion Reactions: No Reported Reaction Date of Last Stent Placement:: 08/19/15 Type of Cardiac Device: Permanent Pacemaker, AICD Device Placement Date:: 2015 Past Psychological History: Anxiety Additional Psychological History / Comment(s): reports feels angry frequently since was taken off xanax Smoking Status: Former smoker Past Alcohol Use History: None Reported Additional Past Alcohol Use History / Comment(s): Pt states he started smoking in 1967 and was up to a 2 ppd smoker. He quit in 2004. Past Drug Use History: None Reported Additional Drug Use History / Comment(s): Uses medical marijuana, aware to sustain 24 hours prior to procedure - Past Family History Mother Family Medical History: Cancer Additional Family Medical History / Comment(s): Mother had renal cancer. She at age 72 from this. Father Family Medical History: Coronary Artery Disease (CAD) Additional Family Medical History / Comment(s): Father was a 3 ppd smoker. He at age 60 yrs of ASHD. Medications and Allergies Home Medications Medication Instructions Recorded Confirmed Type Acyclovir [Zovirax] 200 mg PO BID 08/07/15 04/25/23 History Clopidogrel [Plavix] 75 mg PO DAILY 08/07/15 04/25/23 History Torsemide [Demadex] 5 mg PO DAILY 12/22/17 04/25/23 History glipiZIDE [Glucotrol] 5 mg PO DAILY 12/22/17 04/25/23 History ALPRAZolam [Xanax] 1 mg PO TID 08/20/22 04/25/23 History Atorvastatin [Lipitor] 80 mg PO DAILY 08/20/22 04/25/23 History Metoprolol Tartrate [Lopressor] 100 mg PO BID 08/20/22 04/25/23 History lisinopriL [Zestril] 10 mg PO BID 08/20/22 04/25/23 History Levothyroxine Sodium [Synthroid] 150 mcg PO DAILY 04/25/23 04/25/23 History QUEtiapine [SEROquel] 50 mg PO HS 04/25/23 04/25/23 History Rivaroxaban [Xarelto] 15 mg PO DAILY 04/25/23 04/25/23 History Allergies Allergy/AdvReac Type Severity Reaction Status Date / Time hydrocodone Allergy Itching Verified 04/25/23 13:01 Physical Exam Vitals: Vital Signs Temp Pulse Pulse Resp BP BP Pulse Ox 04/26/23 07:36 99.1 F 50 L 18 123/71 97 04/26/23 06:50 97.9 F 49 L 18 146/79 98 04/26/23 02:00 98.7 F 108 H 16 122/69 97 04/25/23 21:05 98.1 F 59 L 16 175/87 96 04/25/23 21:00 18 04/25/23 18:00 68 20 156/85 96 04/25/23 15:22 65 18 96 04/25/23 13:45 85 L Intake and Output 04/25/23 04/26/23 04/26/23 22:59 06:59 14:59 Intake Total 590 Output Total 800 Balance -800 590 Intake: Oral 590 Output: Urine 800 Other: Voiding Method Urinal Incontinent # Voids 1 1 Weight 77.111 kg PHYSICAL EXAM: VITAL SIGNS: [As above] GENERAL: Alert and oriented 3, Sitting up in bed, no acute distress HEENT: Atraumatic, Conjunctivae normal. eyes normal. NECK: Supple, No JVD. No thyroid enlargement. No LNs CARDIOVASCULAR: S1, S2 regular.. No murmur RESPIRATION: Unlabored , fine rate basilar crackles, Breath sounds diminished in the bases. ABDOMEN: Soft, nontender . No guarding. no masses palpable. No ascites, No hepatosplenomegaly.Bowel sounds heard. LEGS: No edema. no swelling, no calf tenderness NERVOUS SYSTEM: Cranial N 2-12 grossly normal. Moves all 4 limbs. Diffuse weakness,Strength and sensation grossly intact. Skin: warm and dry, Right forearm/elbow abrasions Results CBC & Chem 7: 04/25/23 08:06 04/25/23 08:06 Labs: Abnormal Lab Results - Last 24 Hours (Table) 04/26/23 Range/Units 08:06 TSH 6.220 H (0.465-4.680) mIU/L Thrombosis Risk Factor Assmnt - Choose All That Apply Any of the Below Risk Factors Present?: Yes Each Factor Represents 1 point: Obesity (BMI >25) Other Risk Factors: Yes Each Risk Factor Represents 2 Points: Age 61-74 years Other congenital or acquired thrombophilia - If yes, enter type in comment: No Thrombosis Risk Factor Assessment Total Risk Factor Score: 3 Thrombosis Risk Factor Assessment Level: Moderate Risk Assessment and Plan Assessment: Acute on chronic CHF, systolic dysfunction Falls, reports related to losing balance, in a patient with chronic left leg weakness secondary to multiple surgeries related to trauma, history of CVA with residual numbness and weakness Chronic back pain with history of surgery with gait dysfunction Ischemic cardiomyopathy with EF of 45% Coronary artery disease with previous stent to the proximal LAD History of ventricular fibrillations status post AICD Paroxysmal atrial fibrillation Infrarenal aortic aneurysm with mural thrombus Diabetes mellitus type 2, hemoglobin A1c pending Chronic kidney disease stage III B History of CVA Obstructive sleep apnea and not compliant with CPAP Hypothyroidism Plan: Continue on current medication regime ,monitoring and symptomatic treatment. TSH/free T4/ Echo pending. Diuretics as per cardiology. Close monitoring of renal function with repeat labs ordered for a.m. PT/OT/ST. multiple consults following. Case management consulted for potential subacute rehab. The impression and plan of care has been dictated as directed. : I performed a history and examination of this patient, discussed the same with the dictator. I agree with the dictator's note ,documented as a scribe. Any additional findings or plans will be noted.
[2023-04-26] MEDS ORDERED: PANTOPRAZOLE 40 MG/10 ML VIAL IVP SCH (17:00)
[2023-04-26 17:19] LABS: Glucose,Whole Blood 134 mg/dL (70-110)
[2023-04-26] MEDS: INSULIN ASPART (NovoLOG) 100 UNIT/ML VIAL SQ SCH ×2 (17:27→21:34)
[2023-04-26 20:09] LABS: Glucose,Whole Blood 114 mg/dL (70-110)
[2023-04-26] MEDS: QUEtiapine 50 MG TAB PO SCH (21:35)
[2023-04-27] MEDS: LEVOTHYROXINE 75 MCG TAB PO SCH (05:56)
--- NOTE | 2023-04-27 07:28 | CA ---
Transthoracic Echo Report Name: David Doyle Age: 67 Gender: M : 1955 Exam Date: 04/26/2023 11:24 Exam Location: [facility] Ht (in): 66 Wt (lb): 170 Ordering Physician: Ronel Hernandez MD ([id number]) Attending/Referring Phys: Braille Teacher Dora Edmond RDCS Procedure CPT: Indications: CAD Cardiac Hx: Technical Quality: Technically difficult study Contrast 1: Definity Total Dose (mL): 2 Contrast 2: Total Dose (mL): MEASUREMENTS (Male / Female) Normal Values 2D ECHO LV Diastolic Diameter PLAX 5.9 cm 4.2 - 5.9 / 3.9 - 5.3 cm LV Systolic Diameter PLAX 4.1 cm IVS Diastolic Thickness 1.3 cm 0.6 - 1.0 / 0.6 - 0.9 cm LVPW Diastolic Thickness 1.4 cm 0.6 - 1.0 / 0.6 - 0.9 cm LV Relative Wall Thickness 0.5 RV Internal Dim ED PLAX 3.0 cm LA Volume 82.1 cm??? 18 - 58 / 22 - 52 cm??? LA Volume Index 42.9 cm???/m??? 16 - 28 cm???/m??? M-MODE Aortic Root Diameter MM 3.9 cm LA Systolic Diameter MM 4.5 cm LA Ao Ratio MM 1.1 AV Cusp Separation MM 2.2 cm DOPPLER AV Peak Velocity 120.9 cm/s AV Peak Gradient 5.8 mmHg AV Mean Velocity 78.7 cm/s AV Mean Gradient 2.8 mmHg AV Velocity Time Integral 23.1 cm LVOT Peak Velocity 91.7 cm/s LVOT Peak Gradient 3.4 mmHg LVOT Velocity Time Integral 18.1 cm MV Area PHT 3.5 cm??? Mitral E Point Velocity 56.7 cm/s Mitral A Point Velocity 55.6 cm/s Mitral E to A Ratio 1.0 MV Deceleration Time 215.0 ms TR Peak Velocity 328.8 cm/s TR Peak Gradient 43.3 mmHg Right Ventricular Systolic Press 60.8 mmHg FINDINGS Left Ventricle Mildly increased left ventricular wall thickness. Left ventricular cavity size normal. Inferoapical and inferolateral hypokinesis. Estimated left ventricular ejection fraction 35-40% Right Ventricle Normal right ventricular size and function. Severe pulmonary hypertension. . Right Atrium Normal right atrial size. Catheter/pacemaker wire in the right atrial cavity. Left Atrium Severely increased left atrial volume. Mildly increased left atrial area. Mitral Valve Structurally normal mitral valve. Mild mitral annular calcification. Mild-to- moderate mitral regurgitation. Aortic Valve No aortic valve stenosis or regurgitation.aortic valve sclerosis. Tricuspid Valve Structurally normal tricuspid valve. Mild to Moderate tricuspid regurgitation. Pulmonic Valve Pulmonic valve not well visualized. Pericardium No pericardial effusion. Aorta Normal size aortic root and proximal ascending aorta. CONCLUSIONS Technically difficult study. Definity ECHO contrast used for improved visualization of the endocardial borders (inadequate visualization of two or more contiguous segments). 1. Moderate to severely impaired systolic function with segmental wall motion abnormalities 2. Mild to moderate mitral and tricuspid regurgitation with severe pulmonary hypertension 3. A wire is noted in the right ventricle Previewed by: Dr. Ronel Hernandez MD (Electronically Signed) Final Date: 27 April 2023 07:27
[2023-04-27 07:55] LABS: Glucose,Whole Blood 107 mg/dL (70-110)
[2023-04-27 08:23] LABS: African American GFR (CKD) 72 (>60 ml/min/1.73 sqM); Anion Gap 11 mmol/L; Blood Urea Nitrogen 20 mg/dL (9-20); Calcium 8.6 mg/dL (8.4-10.2); Carbon Dioxide 28 mmol/L (22-30); Chloride 104 mmol/L (98-107); Glucose 100 mg/dL (74-99); Non-African American GFR(CKD) 62 (>60 ml/min/1.73 sqM); Potassium 3.2 mmol/L (3.5-5.1); Sodium 143 mmol/L (137-145)
[2023-04-27] MEDS: RIVAROXABAN 20 MG TAB PO SCH (08:25)
[2023-04-27] MEDS: DAPAGLIFLOZIN PROPANEDIOL 10 MG TABLET PO SCH (08:25)
[2023-04-27] MEDS: PANTOPRAZOLE 40 MG TABLET PO SCH (08:25)
[2023-04-27] MEDS: ATORVASTATIN 80 MG TAB PO SCH (08:25)
[2023-04-27] MEDS: glipiZIDE 5 MG TAB PO SCH (08:25)
[2023-04-27] MEDS: lisinopriL 10 MG TAB PO SCH ×2 (08:25→20:51)
[2023-04-27] MEDS: METOPROLOL TARTRATE 50 MG TAB PO SCH ×2 (08:26→20:51)
[2023-04-27] MEDS: INSULIN ASPART (NovoLOG) 100 UNIT/ML VIAL SQ SCH ×4 (08:38→20:54)
[2023-04-27] MEDS: FUROSEMIDE 10 MG/ML 2 ML VIAL IV SCH (09:06)
[2023-04-27] MEDS ORDERED: POTASSIUM CHLORIDE ER 20 MEQ TAB.ER PO STA (10:39)
--- NOTE | 2023-04-27 11:15 | P.PN ---
Subjective Progress Note Date: 04/27/23 History of present illness: This is a 67-year-old male patient of Dr. Bhatti with past medical history of is chemic cardiomyopathy with EF 45%, history of ventricular fibrillation status post AICD, paroxysmal atrial fibrillation, infrarenal aortic aneurysm with mural thrombus, chronic kidney disease stage IIIB. we have been asked to evaluate the patient for CHF. patient states that he had 2 falls recently one was yesterday where he fell backwards. He states he lost his balance. No shortness of breath and no chest pain or pressure. He denies having any dizziness, no palpitations. He does have chronic lower extremity edema left-sided. He denies any syncopal episodes. No cough or fevers. No wheezing. No seizure activity. He does have history of CVA. Patient is not normally active as he states his bones are achy. Patient has been started on IV Lasix 20 mg 1 in the ER and then every 12 ho urs. Patient is currently on 4 L nasal cannula. EKG sinus rhythm Chest x-ray: cardiomegaly and mild pulmonary vascular congestion. WBC 13.2, hemoglobin 15.5, platelet count 134. Electrolytes and renal function are normal. Blood sugar 136. Total bilirubin 1.4 otherwise liver function tests are normal. Troponin negative 1. ProBNP 3900. Urinalysis negative. Home cardiac medications: atorvastatin 80 mg daily, Plavix 75 mg daily, lisinopril 10 mg twice daily, Lopressor 100 mg twice daily, Xarelto 50 mg daily, Demadex 5 mg daily, patient is also on levothyroxine 150 g daily Cardiac catheterization 07/2015 70% ostial LAD, 80% ostial OM1, 100% mid RCA status post stent of the proximal LAD Lexiscan stress test 04/2019 negative stress test, fixed defect in the inferior wall suggestive of previous VT. EF 40%. 04/27 Patient is seen today in follow-up on the Medr floor. He feels that he is a little bit stronger today. He states he slept well last night. He denies having any chest pain and no palpitations. He denies any dizziness. Heart rate is running in the 50s and 60s, blood pressure 128/75, pulse ox 88-94% on oxygen afebrile. Blood sugars are noted be 107-134. Repeat blood work reveals potassium of 3.2, BUN 20 creatinine 1.19. ProBNP 2440. TSH 6.22 with normal free T4 1 0.7. Patient is maintained on IV Lasix 20 mg every 12 hours. Echocardiogram reveals technically difficult study. Moderate to severely impaired systolic function with segmental wall motion abnormality, EF 35-40%. [id number] mitral and tricuspid regurgitation with severe pulmonary hypertension. Wire noted in the right ventricle. Physical examination: Gen: This is a 67 year old male resting in bed and appears to be in no acute distress. VS: reviewed HEENT: Head is atraumatic, normocephalic. Pupils equal, round. Sclerae is anicteric. NECK: Supple. No JVD. LUNGS: Clear to auscultation. No wheezes or rhonchi. No intercostal retractions. HEART: Regular rate and rhythm. No murmur. ABDOMEN: Soft No tenderness. EXTREMITIES: No pedal edema. No calf tenderness. NEUROLOGICAL: Patient is awake, alert and oriented x3. Assessment: Acute on chronic systolic heart failure Falls Ischemic cardiomyopathy with EF of 45% Coronary artery disease with previous stent to the proximal LAD History of ventricular fibrillations status post AICD Paroxysmal atrial fibrillation Infrarenal aortic aneurysm with mural thrombus Diabetes mellitus type 2 Chronic kidney disease stage III B History of CVA Obstructive sleep apnea and not compliant with CPAP Hypothyroidism Plan: Continue patient's home cardiac medications considering the following changes Transition IV Lasix to patient's home dose of torsemide Continue Xarelto 20 mg daily and discontinue Plavix (this was discontinued at his last office visit) Continue patient on Farxiga 10 mg daily and monitor closely for hypoglycemia with glipizide, may considering discontinuing glipizide or decrease dose of glipizide Potassium replacement Nurse practitioner note has been reviewed, I agree with documented findings and plan of care. Patient was seen and examined. Objective - Vital Signs Vital signs: Vital Signs Temp 97.4 F L 04/27/23 07:46 Pulse 61 04/27/23 07:46 Resp 22 04/27/23 07:46 BP 128/75 04/27/23 07:46 Pulse Ox 88 L 04/27/23 07:46 FiO2 Intake & Output 04/26/23 04/27/23 04/27/23 18:59 06:59 18:59 Intake Total 590 Output Total 1000 Balance -1000 590 Weight 76 kg Intake: Oral 590 Output: Urine 1000 Other: Voiding Method Urinal Urinal Incontinent Incontinent # Voids 1 # Bowel Movements 1 - Labs CBC & Chem 7: 04/25/23 08:06 04/27/23 05:59 Labs: Abnormal Lab Results - Last 24 Hours (Table) 04/26/23 04/26/23 04/26/23 Range/Units 08:06 17:17 18:12 POC Glucose (mg/dL) 134 H (70-110) mg/dL Hemoglobin A1c 6.7 H (<=6.0) % TSH 6.220 H (0.465-4.680) mIU/L 04/26/23 Range/Units 20:07 POC Glucose (mg/dL) 114 H (70-110) mg/dL Hemoglobin A1c (<=6.0) % TSH (0.465-4.680) mIU/L
[2023-04-27 11:17] LABS: LDL Cholesterol,Calculated 80.6 mg/dL (0.0-131.0)
[2023-04-27 11:55] LABS: Glucose,Whole Blood 198 mg/dL (70-110)
--- NOTE | 2023-04-27 12:07 | P.PN ---
Subjective Progress Note Date: 04/27/23 I am seeing this patient in consultation today 04/26/2023 after the patient was found to be short of breath and hypoxic while emergency room. Patient originally came to the emergency room for generalized weakness and falls. Patient is a 67-year-old white male with past medical history significant for coronary artery disease with previous [place] and coronary stents, congestive heart failure and AICD, atrial fibrillation, diabetes mellitus, CVA/TIA, hyperlipidemia, hypertension, hypothyroidism, obstructive sleep apnea, and is an ex tobacco smoker. His PCP is Dr. Manas Cervantes. Patient is a poor historian, and much of this information is taken from chart review and patient's son. Patient's son states the patient fell multiple times yesterday, and that he thinks the patient may have hit his head. I am unsure what the patient's baseline mental status is, but i'm told he has some baseline dementia. Patient himself denies hitting his head. There is no obvious facial or head trauma to the head. He has not been using his cane to walk. He has right sided weakness from a previous stroke. Patient is anticoagulated on Xarelto. Patient denies any complaints of shortness of breath. He is currently, however, on 4 L/m nasal cannula currently. He denies using home O2. Denies any history of lung disease. Denies any fever, chills, cough, chest pain. Denies heart palpitations, orthopnea, lower extremity edema. Chest x-ray on arrival showed pulmonary vascular congestion and cardiomegaly. NT proBNP was elevated at 3900. Troponin 0.033. EKG currently shows normal sinus rhythm without any obvious acute ischemic changes. There is an intraventricular conduction delay. CBC on arrival shows mild leukocytosis with a WBC count of 13.2, hemoglobin 15.5, hematocrit 47, platelets 134. BMP on arrival was unremarkable. Urinalysis not concerning for UTI. COVID-19 negative. Afebrile. Patient is being monitored on the general medical floor. The patient is seen today 04/27/2023 in follow-up on the regular medical floor. He is currently awake and alert in no acute distress. He is maintaining O2 saturations in the high 90s 80s low 90s on 2 L/m per nasal cannula. He is feeling a bit better today compared to yesterday. Echocardiogram did reveal severely impaired left ventricular systolic function with ejection fraction of 35-40% along with inferior apical and inferolateral hypokinesis. Sodium 143. Potassium 3.2. Bicarb 28. BUN 20. Creatinine 1.19. Glucose 100. ProBNP 2440. He is continued on IV diuretics. Anticoagulated with Xarelto. Objective - Vital Signs Vital signs: Vital Signs Temp 98.4 F 04/27/23 11:22 Pulse 54 L 04/27/23 11:22 Resp 20 04/27/23 11:22 BP 129/73 04/27/23 11:22 Pulse Ox 94 L 04/27/23 11:22 FiO2 Intake & Output 04/26/23 04/27/23 04/27/23 18:59 06:59 18:59 Intake Total 590 Output Total 1000 Balance -1000 590 Weight 76 kg Intake: Oral 590 Output: Urine 1000 Other: Voiding Method Urinal Urinal Urinal Incontinent Incontinent Incontinent # Voids 1 # Bowel Movements 1 - Exam GENERAL EXAM: Awake, alert, pleasant 67-year-old male, comfortable in no apparen t distress. HEAD: Normocephalic and atraumatic EYES: Normal reaction of pupils, equal size. NOSE: Clear with pink turbinates. THROAT: No erythema or exudates. NECK: No masses, no JVD. CHEST: No chest wall deformity. LUNGS: Equal air entry with bibasilar dry crackles. On 2 L per min nasal cannula. No conversational dyspnea. CVS: S1 and S2 normal with no audible murmur, regular rhythm. No extra heart sounds ABDOMEN: No hepatosplenomegaly, active bowel sounds, no guarding or rigidity. SPINE: No scoliosis or deformity SKIN: No rashes CENTRAL NERVOUS SYSTEM: No noted focal deficits. Moving all 4 extremities. EXTREMITIES: There is no peripheral edema, clubbing, or cyanosis. Peripheral pulses are intact. - Labs CBC & Chem 7: 04/25/23 08:06 04/27/23 05:59 Labs: Abnormal Lab Results - Last 24 Hours (Table) 04/26/23 04/26/23 04/26/23 Range/Units 17:17 18:12 20:07 Potassium (3.5-5.1) mmol/L Glucose (74-99) mg/dL POC Glucose (mg/dL) 134 H 114 H (70-110) mg/dL Hemoglobin A1c 6.7 H (<=6.0) % HDL Cholesterol (40.00-60.00) mg/dL 04/27/23 Range/Units 05:59 Potassium 3.2 L (3.5-5.1) mmol/L Glucose 100 H (74-99) mg/dL POC Glucose (mg/dL) (70-110) mg/dL Hemoglobin A1c (<=6.0) % HDL Cholesterol 33.40 L (40.00-60.00) mg/dL Assessment and Plan Assessment: Acute hypoxemic respiratory failure, secondary to an exacerbation of systolic congestive heart failure. Chest x-ray on arrival showed mild pulmonary vascular congestion and cardiomegaly. NT proBNP was elevated at 3900. Echocardiogram revealed severely impaired left ventricular systolic function with ejection fraction of 35%. Remains on IV diuretics. Improving and on 2 L/m per nasal cannula Generalized weakness Frequent falls Altered mental status, patient may have baseline history of dementia, improved and alert Mild leukocytosis, without any obvious infectious etiology History of CVA/TIA Coronary artery disease with previous [place] and coronary stents History of systolic congestive heart failure and ventricular tachycardia statu s/post AICD implantation History of atrial fibrillation, currently in normal sinus rhythm, anticoagulated on Xarelto Diabetes mellitus type 2 Hyperlipidemia Benign essential hypertension Objective sleep apnea, patient's family states that he is not compliant with CPAP Hypothyroidism Former tobacco smoker Plan: The patient was seen and evaluated Echocardiogram, labs and medications reviewed Being transitioned to oral diuretics Anticoagulated with Xarelto. Initiated on Farxiga Titrate the FiO2 as tolerated We will continue to follow I have personally seen and examined the patient, performed the documentation and the assessment and plan as written. Number of minutes spent on the visit: 10.
[2023-04-27] MEDS: LEVOTHYROXINE 25 MCG TAB PO SCH (13:59)
--- NOTE | 2023-04-27 15:42 | P.PN ---
Subjective Progress Note Date: 04/27/23 H&P Date: 04/26/23 Chief Complaint: Shortness of breath, falls, weakness This is a 67-year-old gentleman with past medical history significant for CAD, ID, ventricular fibrillation status post AICD,ischemic cardiomyopathy with EF 45% ,cardiac catheterization with stents,hypertension, paroxysmal atrial fibrillation, infrarenal aortic aneurysm with mural thrombus, peripheral vascular disease, left leg multiple surgeries for trauma, chronic back pain CVA/TIA, diabetes mellitus, chronic kidney disease stage IIIB and DVT, gastroesophageal reflux disease, hypothyroidism,Peripheral vascular disease, anxiety, former nicotine dependence, marijuana use, presented to the ER with complaints of dyspnea, increased weakness, falls 2 with last fall occurring yes terday and multiple other medical issues. Reports he fell backwards related to losing his balance. Denies head trauma. Denies syncope. Denies chest pain, palpitations or shortness of breath. Denies lightheadedness, dizziness or focal deficits. Denies fevers chills or congestion. Denies wearing O2 at home, currently requiring 4 L nasal cannula to maintain O2 sats in the 90s. Patient is a vague historian. Family reported to PCP concerns for patient having underlying dementia, forgetfulness. Right-sided weakness from prior stroke, reports he uses a walker for gait dysfunction. Chest x-ray reported cardiomegaly, mild pulmonary vascular congestion. ProBNP 3900. Troponin 0.033. EKG reports normal sinus rhythm with intraventricular conduction delay. Afebrile, WBC 13.2, hemoglobin 15.5, platelets 134. BMP unremarkable. UA negative. COVID-19(PCR) not detected. Maintained on IV push Lasix. 04/27/2023 feels better today , sitting up in chair. Denies chest pain, palpitations or shortness of breath. Today he reports he never had shortness of breath, even on admission. Echo completed yesterday reporting inferior apical and inferior lateral hypokinesis, estimated left ventricular ejection 35-40%, severe pulmonary hypertension. Diuresing well on Lasix IV push with 24-hour I&O reflecting a negative fluid balance. Creatinine slowly trending up with creatinine up to 1.19. IV push Lasix transitioned to patient's oral torsemide. Potassium 3.2, supplemented. Maintaining O2 sats in the high 80s on 2 L nasal cannula and low 90s on 3 L nasal cannula. Anticoagulated on Xarelto. Evaluated by PT, recommending subacute rehab., which patient is currently declining. TSH 6.22, T4 1.70, Levothyroxine increased. Afebrile. Hemoglobin A1c 6.7, Blood sugars controlled. Objective - Vital Signs Vital signs: Vital Signs Temp 98.1 F 04/27/23 13:23 Pulse 56 L 04/27/23 13:23 Resp 14 04/27/23 13:23 BP 149/80 04/27/23 13:23 Pulse Ox 100 04/27/23 13:23 FiO2 Intake & Output 04/26/23 04/27/23 04/27/23 18:59 06:59 18:59 Intake Total 590 Output Total 1000 700 Balance -1000 590 -700 Weight 76 kg Intake: Oral 590 Output: Urine 1000 700 Other: Voiding Method Urinal Urinal Urinal Incontinent Incontinent Incontinent # Voids 1 1 # Bowel Movements 1 - Exam PHYSICAL EXAM: VITAL SIGNS: [As above] GENERAL: Alert and oriented 3, Sitting up in chair, no acute distress HEENT: Normocephalic, Conjunctivae normal. eyes normal. NECK: Supple, No JVD. CARDIOVASCULAR: S1, S2 regular. No murmur RESPIRATION: Unlabored, fine bibasilar crackles, Breath sounds diminished in the bases. ABDOMEN: Soft, nontender . No guarding. +bs. LEGS: No edema. no swelling, no calf tenderness NERVOUS SYSTEM: Cranial N 2-12 grossly normal. Strength and sensation grossly intact/Generalized weakness. Skin: warm and dry, Right forearm/elbow abrasions-scabbed,dry without drainage. - Labs CBC & Chem 7: 04/25/23 08:06 04/27/23 05:59 Labs: Abnormal Lab Results - Last 24 Hours (Table) 04/26/23 04/26/23 04/26/23 Range/Units 17:17 18:12 20:07 Potassium (3.5-5.1) mmol/L Glucose (74-99) mg/dL POC Glucose (mg/dL) 134 H 114 H (70-110) mg/dL Hemoglobin A1c 6.7 H (<=6.0) % HDL Cholesterol (40.00-60.00) mg/dL 04/27/23 04/27/23 Range/Units 05:59 11:52 Potassium 3.2 L (3.5-5.1) mmol/L Glucose 100 H (74-99) mg/dL POC Glucose (mg/dL) 198 H (70-110) mg/dL Hemoglobin A1c (<=6.0) % HDL Cholesterol 33.40 L (40.00-60.00) mg/dL Assessment and Plan Assessment: Acute on chronic CHF, systolic dysfunction,EF 35-40% Acute hypoxic respiratory failure secondary to the above. Severe pulmonary hypertension Falls, reports related to losing balance, in a patient with chronic left leg weakness secondary to multiple surgeries related to trauma, history of CVA with residual numbness and weakness; PT recommending subacute rehab Chronic back pain with history of surgery with gait dysfunction Ischemic cardiomyopathy with EF of 45% Coronary artery disease with previous stent to the proximal LAD History of ventricular fibrillations status post AICD Paroxysmal atrial fibrillation Infrarenal aortic aneurysm with mural thrombus Diabetes mellitus type 2, hemoglobin A1c 6.7 Chronic kidney disease stage III B History of CVA Obstructive sleep apnea and not compliant with CPAP Hypothyroidism Former nicotine dependence, reports 37 years. Hypokalemia Plan: Continue on current medication regime ,monitoring and symptomatic treatment. Potassium supplemented.Levothyroxine increased to 175 mics daily. Diuretics transitioned to oral torsemide as per cardiology. Continue close monitoring of renal function and electrolytes with repeat labs ordered for a.m. Discharge planning in progress pending DC recommendations and clearance by pulmonary and cardiology. The impression and plan of care has been dictated as directed. : I performed a history and examination of this patient, discussed the same with the dictator. I agree with the dictator's note ,documented as a scribe. Any additional findings or plans will be noted.
[2023-04-27 17:13] LABS: Glucose,Whole Blood 126 mg/dL (70-110)
[2023-04-27 20:36] LABS: Glucose,Whole Blood 136 mg/dL (70-110)
[2023-04-27] MEDS: QUEtiapine 50 MG TAB PO SCH (20:51)
[2023-04-27] MEDS: CYANOCOBALAMIN 1,000 MCG/ML 1 ML VIAL IM SCH (20:52)
[2023-04-28] MEDS ORDERED: LEVOTHYROXINE 25 MCG TAB PO SCH (06:30)
[2023-04-28] MEDS: LEVOTHYROXINE 25 MCG TAB PO SCH (06:30)
[2023-04-28] MEDS: LEVOTHYROXINE 75 MCG TAB PO SCH (06:30)
[2023-04-28 07:20] LABS: Glucose,Whole Blood 114 mg/dL (70-110)
[2023-04-28] MEDS: INSULIN ASPART (NovoLOG) 100 UNIT/ML VIAL SQ SCH ×2 (07:35→12:41)
[2023-04-28 08:47] LABS: Basophils # (A) 0.07 X 10*3/uL (0.00-0.10); Basophils % (A) 0.9 %; Eosinophils # (A) 0.79 X 10*3/uL (0.04-0.35); Eosinophils % (A) 9.8 %; HCT 41.5 % (39.6-50.0); HGB 13.5 d/dL (13.0-17.0); Lymphocytes # (A) 1.91 X 10*3/uL (0.90-5.00); Lymphocytes % (A) 23.8 %; MCH 29.9 pg (27.0-32.0); MCHC 32.5 d/dL (32.0-37.0); Mean Platelet Volume 12.3 FL (9.5-12.2); Monocytes % (A) 11.2 %; NRBC Per 100 WBC 0 X 10*3/uL (0.00-0.01); Neutrophils # (A) 4.32 X 10*3/uL (1.80-7.70); Neutrophils % (A) 53.8 %; Platelet Count 131 X 10*3/uL (140-440); RBC 4.51 X 10*6/uL (4.40-5.60); RDW 15.8 % (11.5-14.5); WBC 8.03 X 10*3/uL (4.50-10.00)
[2023-04-28] MEDS ORDERED: TORSEMIDE 20 MG TAB PO SCH ×2 (09:00)
[2023-04-28] MEDS: METOPROLOL TARTRATE 50 MG TAB PO SCH (09:03)
[2023-04-28] MEDS: RIVAROXABAN 20 MG TAB PO SCH (09:08)
[2023-04-28] MEDS: DAPAGLIFLOZIN PROPANEDIOL 10 MG TABLET PO SCH (09:08)
[2023-04-28] MEDS: PANTOPRAZOLE 40 MG TABLET PO SCH (09:08)
[2023-04-28] MEDS: lisinopriL 10 MG TAB PO SCH (09:08)
[2023-04-28] MEDS: ATORVASTATIN 80 MG TAB PO SCH (09:08)
[2023-04-28] MEDS: glipiZIDE 5 MG TAB PO SCH (09:09)
[2023-04-28] MEDS: CYANOCOBALAMIN 1,000 MCG/ML 1 ML VIAL IM SCH (09:09)
[2023-04-28 09:32] LABS: Calcium 8.9 mg/dL (8.7-10.3); Carbon Dioxide 25.4 mmol/L (21.6-31.8); Chloride 102 mmol/L (96-109); Glucose 103 mg/dL (70-110); Magnesium 2.4 mg/dL (1.5-2.4); Potassium 3.5 mmol/L (3.5-5.5); Sodium 141 mmol/L (135-145)
--- NOTE | 2023-04-28 10:46 | P.PN ---
Subjective Progress Note Date: 04/28/23 History of present illness: This is a 67-year-old male patient of Dr. Bhatti with past medical history of is chemic cardiomyopathy with EF 45%, history of ventricular fibrillation status post AICD, paroxysmal atrial fibrillation, infrarenal aortic aneurysm with mural thrombus, chronic kidney disease stage IIIB. we have been asked to evaluate the patient for CHF. patient states that he had 2 falls recently one was yesterday where he fell backwards. He states he lost his balance. No shortness of breath and no chest pain or pressure. He denies having any dizziness, no palpitations. He does have chronic lower extremity edema left-sided. He denies any syncopal episodes. No cough or fevers. No wheezing. No seizure activity. He does have history of CVA. Patient is not normally active as he states his bones are achy. Patient has been started on IV Lasix 20 mg 1 in the ER and then every 12 ho urs. Patient is currently on 4 L nasal cannula. EKG sinus rhythm Chest x-ray: cardiomegaly and mild pulmonary vascular congestion. WBC 13.2, hemoglobin 15.5, platelet count 134. Electrolytes and renal function are normal. Blood sugar 136. Total bilirubin 1.4 otherwise liver function tests are normal. Troponin negative 1. ProBNP 3900. Urinalysis negative. Home cardiac medications: atorvastatin 80 mg daily, Plavix 75 mg daily, lisinopril 10 mg twice daily, Lopressor 100 mg twice daily, Xarelto 50 mg daily, Demadex 5 mg daily, patient is also on levothyroxine 150 g daily Cardiac catheterization 07/2015 70% ostial LAD, 80% ostial OM1, 100% mid RCA status post stent of the proximal LAD Lexiscan stress test 04/2019 negative stress test, fixed defect in the inferior wall suggestive of previous VT. EF 40%. 04/27 Patient is seen today in follow-up on the Med[facility] floor. He feels that he is a little bit stronger today. He states he slept well last night. He denies having any chest pain and no palpitations. He denies any dizziness. Heart rate is running in the 50s and 60s, blood pressure 128/75, pulse ox 88-94% on oxygen afebrile. Blood sugars are noted be 107-134. Repeat blood work reveals potassium of 3.2, BUN 20 creatinine 1.19. ProBNP 2440. TSH 6.22 with normal free T4 1 0.7. Patient is maintained on IV Lasix 20 mg every 12 hours. Echocardiogram reveals technically difficult study. Moderate to severely impaired systolic function with segmental wall motion abnormality, EF 35-40%. [id number] mitral and tricuspid regurgitation with severe pulmonary hypertension. Wire noted in the right ventricle. 04/28 Yesterday, IV Lasix was transitioned to oral torsemide. Patient denies any new concerns today. He does think he is weak. No chest pain or shortness of breath. Heart rate is in the 50s, blood pressure 128/74, pulse ox 94% on 2 L nasal cannula. WBC 8, hemoglobin 13.5, platelet count 131. Electrolytes normal. BUN 21 creatinine 1.2. Magnesium 2.4. Physical examination: Gen: This is a 67 year old male resting in bed and appears to be in no acute distress. VS: reviewed HEENT: Head is atraumatic, normocephalic. Pupils equal, round. Sclerae is a nicteric. NECK: Supple. No JVD. LUNGS: Clear to auscultation. No wheezes or rhonchi. No intercostal retractions. HEART: Regular rate and rhythm. No murmur. ABDOMEN: Soft No tenderness. EXTREMITIES: No pedal edema. No calf tenderness. NEUROLOGICAL: Patient is awake, alert and oriented x3. Assessment: Acute on chronic systolic heart failure Falls Ischemic cardiomyopathy with EF of 45% Coronary artery disease with previous stent to the proximal LAD History of ventricular fibrillations status post AICD Paroxysmal atrial fibrillation Infrarenal aortic aneurysm with mural thrombus Diabetes mellitus type 2 Chronic kidney disease stage III B History of CVA Obstructive sleep apnea and not compliant with CPAP Hypothyroidism Plan: Continue patient's home cardiac medications considering the following changes Continue oral torsemide Continue Xarelto 20 mg daily and discontinue Plavix (this was discontinued at his last office visit) Continue patient on Farxiga 10 mg daily and monitor closely for hypoglycemia with glipizide, may considering discontinuing glipizide or decrease dose of glip izide Cardiology will sign off this case and follow on an as-needed basis. Please reconsult for any new concerns. Patient may follow-up in the office in one to [address] Bhatti. Nurse practitioner note has been reviewed, I agree with documented findings and plan of care. Patient was seen and examined. Objective - Vital Signs Vital signs: Vital Signs Temp 98.9 F 04/28/23 07:10 Pulse 50 L 04/28/23 07:10 Resp 17 04/28/23 07:10 BP 128/74 04/28/23 07:10 Pulse Ox 94 L 04/28/23 07:10 FiO2 Intake & Output 04/27/23 04/28/23 04/28/23 18:59 06:59 18:59 Intake Total 600 120 Output Total 700 Balance -100 120 Weight 75.5 kg Intake: Oral 600 120 Output: Urine 700 Other: Voiding Method Urinal Urinal Incontinent Incontinent # Voids 1 # Bowel Movements 1 - Labs CBC & Chem 7: 04/28/23 04:12 04/28/23 04:12 Labs: Abnormal Lab Results - Last 24 Hours (Table) 04/27/23 04/27/23 04/27/23 Range/Units 05:59 11:52 17:11 Potassium 3.2 L (3.5-5.1) mmol/L Glucose 100 H (74-99) mg/dL POC Glucose (mg/dL) 198 H 126 H (70-110) mg/dL HDL Cholesterol 33.40 L (40.00-60.00) mg/dL 04/27/23 04/28/23 Range/Units 20:31 07:19 Potassium (3.5-5.1) mmol/L Glucose (74-99) mg/dL POC Glucose (mg/dL) 136 H 114 H (70-110) mg/dL HDL Cholesterol (40.00-60.00) mg/dL
--- NOTE | 2023-04-28 12:18 | P.PN ---
Subjective Progress Note Date: 04/27/23 Patient was seen for a follow-up. Patient is reclining comfortably in the bed. Offers no complaints. Objective - Vital Signs Vital signs: Vital Signs Temp 98.0 F 04/27/23 18:27 Pulse 51 L 04/27/23 18:27 Resp 16 04/27/23 18:27 BP 147/71 04/27/23 18:27 Pulse Ox 96 04/27/23 18:27 FiO2 Intake & Output 04/26/23 04/27/23 04/27/23 18:59 06:59 18:59 Intake Total 590 600 Output Total 1000 700 Balance -1000 590 -100 Weight 76 kg Intake: Oral 590 600 Output: Urine 1000 700 Other: Voiding Method Urinal Urinal Urinal Incontinent Incontinent Incontinent # Voids 1 1 # Bowel Movements 1 1 - Exam Patient is alert and awake. Patient offers no complaints. Detail examination deferred. - Labs CBC & Chem 7: 04/28/23 04:12 04/28/23 04:12 Labs: Abnormal Lab Results - Last 24 Hours (Table) 04/26/23 04/26/23 04/27/23 Range/Units 18:12 20:07 05:59 Potassium 3.2 L (3.5-5.1) mmol/L Glucose 100 H (74-99) mg/dL POC Glucose (mg/dL) 114 H (70-110) mg/dL Hemoglobin A1c 6.7 H (<=6.0) % HDL Cholesterol 33.40 L (40.00-60.00) mg/dL 04/27/23 04/27/23 Range/Units 11:52 17:11 Potassium (3.5-5.1) mmol/L Glucose (74-99) mg/dL POC Glucose (mg/dL) 198 H 126 H (70-110) mg/dL Hemoglobin A1c (<=6.0) % HDL Cholesterol (40.00-60.00) mg/dL Assessment and Plan Assessment: * Status post fall, perhaps due to losing balance. * Chronic left leg weakness related to previous multiple surgeries for trauma * History of CVA, with residual numbness of the right medial hand and foot. * Paroxysmal atrial fibrillation * History of ventricular fibrillation, status post AICD * History of infrarenal aortic aneurysm with mural thrombus * Diabetes type 2 * Chronic renal disease * Obstructive sleep apnea * Ischemic cardiomyopathy * Chronic left leg weakness Plan: * Patient has chronic balance disorder related to previous chronic left leg weakness from previous trauma to the left thigh with multiple surgeries. Patient also has history of back surgery, also CVA with residual numbness of the right medial hand and foot. Suspect patient has chronic balance disorder. Patient always uses either cane or walker for ambulation. * Patient has atrial fibrillation, Xarelto changed from 15 to 20 mg daily per cardiology. * Patient's TSH is elevated 6.22 (0.46-4.68), with normal free T4 1.70. IM to address abnormal thyroid functions. * B12 311, folate 11.1, B12 is borderline, we will give B12 injections to help with the balance. * Lipid panel cholesterol 137, LDL 80, HDL 33 and triglycerides 115. Hemoglobin A1c 6.7. This is much better, as his last hemoglobin A1c was 9.1 on 08/19/2015. * Patient cannot have MRI because of presence of AICD. * PT, OT, evaluate gait. Patient should consistently use walker to prevent falls. Suspect a cane may not help prevent falls. * Neurologically clear.
[2023-04-28 12:19] LABS: Glucose,Whole Blood 120 mg/dL (70-110)
[2023-04-28 12:39] VITALS: BP 120/62; PULSE 51; RESP 18; TEMP 97.8
--- NOTE | 2023-04-28 12:51 | P.PN ---
Subjective Progress Note Date: 04/28/23 I am seeing this patient in consultation today 04/26/2023 after the patient was found to be short of breath and hypoxic while emergency room. Patient originally came to the emergency room for generalized weakness and falls. Patient is a 67-year-old white male with past medical history significant for coronary artery disease with previous LA and coronary stents, congestive heart failure and AICD, atrial fibrillation, diabetes mellitus, CVA/TIA, hyperlipidemia, hypertension, hypothyroidism, obstructive sleep apnea, and is an ex tobacco smoker. His PCP is Dr. Manas Cervantes. Patient is a poor historian, and much of this information is taken from chart review and patient's son. Patient's son states the patient fell multiple times yesterday, and that he thinks the patient may have hit his head. I am unsure what the patient's baseline mental status is, but i'm told he has some baseline dementia. Patient himself denies hitting his head. There is no obvious facial or head trauma to the head. He has not been using his cane to walk. He has right sided weakness from a previous stroke. Patient is anticoagulated on Xarelto. Patient denies any complaints of shortness of breath. He is currently, however, on 4 L/m nasal cannula currently. He denies using home O2. Denies any history of lung disease. Denies any fever, chills, cough, chest pain. Denies heart palpitations, orthopnea, lower extremity edema. Chest x-ray on arrival showed pulmonary vascular congestion and cardiomegaly. NT proBNP was elevated at 3900. Troponin 0.033. EKG currently shows normal sinus rhythm without any obvious acute ischemic changes. There is an intraventricular conduction delay. CBC on arrival shows mild leukocytosis with a WBC count of 13.2, hemoglobin 15.5, hematocrit 47, platelets 134. BMP on arrival was unremarkable. Urinalysis not concerning for UTI. COVID-19 negative. Afebrile. Patient is being monitored on the general medical floor. The patient is seen today 04/27/2023 in follow-up on the regular medical floor. He is currently awake and alert in no acute distress. He is maintaining O2 saturations in the high 90s 80s low 90s on 2 L/m per nasal cannula. He is feeling a bit better today compared to yesterday. Echocardiogram did reveal severely impaired left ventricular systolic function with ejection fraction of 35-40% along with inferior apical and inferolateral hypokinesis. Sodium 143. Potassium 3.2. Bicarb 28. BUN 20. Creatinine 1.19. Glucose 100. ProBNP 2440. He is continued on IV diuretics. Anticoagulated with Xarelto. The patient is seen today 04/28/2023 in follow-up on the regular medical floor. He is currently sitting up in bed. Awake and alert in no acute distress. 18 in good O2 saturations in the 90s on 2 L/m per nasal cannula. He is afebrile. He modynamically stable. He continues with crackles in the posterior bases. Chest x-ray pending. White count 8.0. Hemoglobin 13.5. Sodium 141. Potassium 3.5. Bicarb 25. BUN 21. Creatinine 1.2. Glucose 103. He remains on Demadex. Continued on Farxiga. Anticoagulated with Xarelto. Objective - Vital Signs Vital signs: Vital Signs Temp 97.8 F 04/28/23 11:55 Pulse 51 L 04/28/23 11:55 Resp 18 04/28/23 11:55 BP 120/62 04/28/23 11:55 Pulse Ox 93 L 04/28/23 11:55 FiO2 Intake & Output 04/27/23 04/28/23 04/28/23 18:59 06:59 18:59 Intake Total 600 120 Output Total 700 Balance -100 120 Weight 75.5 kg Intake: Oral 600 120 Output: Urine 700 Other: Voiding Method Urinal Urinal Urinal Incontinent Incontinent Incontinent # Voids 1 # Bowel Movements 1 - Exam GENERAL EXAM: Awake, alert 67-year-old male, on 2 L nasal cannula, comfortable in no apparent distress. HEAD: Normocephalic and atraumatic EYES: Normal reaction of pupils, equal size. NOSE: Clear with pink turbinates. THROAT: No erythema or exudates. NECK: No masses, no JVD. CHEST: No chest wall deformity. LUNGS: Equal air entry with bibasilar dry crackles. No conversational dyspnea. CVS: S1 and S2 normal with no audible murmur, regular rhythm. No extra heart sounds ABDOMEN: No hepatosplenomegaly, active bowel sounds, no guarding or rigidity. SPINE: No scoliosis or deformity SKIN: No rashes CENTRAL NERVOUS SYSTEM: No noted focal deficits. Tone is normal in all 4 extremities. EXTREMITIES: There is no peripheral edema, clubbing, or cyanosis. Peripheral pulses are intact. - Labs CBC & Chem 7: 04/28/23 04:12 04/28/23 04:12 Labs: Abnormal Lab Results - Last 24 Hours (Table) 04/27/23 04/27/23 04/28/23 Range/Units 17:11 20:31 04:12 RDW (11.5-14.5) % Plt Count (140-440) X 10*3/uL MPV (9.5-12.2) FL Eosinophils # (0.04-0.35) X 10*3/uL Anion Gap 13.60 H (4.00-12.00) mmol/L POC Glucose (mg/dL) 126 H 136 H (70-110) mg/dL 04/28/23 04/28/23 04/28/23 Range/Units 04:12 07:19 12:17 RDW 15.8 H (11.5-14.5) % Plt Count 131 L (140-440) X 10*3/uL MPV 12.3 H (9.5-12.2) FL Eosinophils # 0.79 H (0.04-0.35) X 10*3/uL Anion Gap (4.00-12.00) mmol/L POC Glucose (mg/dL) 114 H 120 H (70-110) mg/dL Assessment and Plan Assessment: Acute hypoxemic respiratory failure, secondary to an exacerbation of systolic congestive heart failure. Chest x-ray on arrival showed mild pulmonary vascular congestion and cardiomegaly. NT proBNP was elevated at 3900. Echocardiogram revealed severely impaired left ventricular systolic function with ejection fraction of 35%. Transitioned to Demadex. Improving and on 2 L/m per nasal cannula Generalized weakness Frequent falls Altered mental status, patient may have baseline history of dementia, improved and alert Mild leukocytosis, without any obvious infectious etiology History of CVA/TIA Coronary artery disease with previous LA and coronary stents History of systolic congestive heart failure and ventricular tachycardia status/post AICD implantation History of atrial fibrillation, currently in normal sinus rhythm, anticoagulated on Xarelto Diabetes mellitus type 2 Hyperlipidemia Benign essential hypertension Objective sleep apnea, patient's family states that he is not compliant with CPAP Hypothyroidism Former tobacco smoker Plan: The patient was seen and evaluated Labs and medications reviewed Chest x-ray pending Transitioned to oral diuretics Anticoagulated with Xarelto Continued on Farxiga Does not require home oxygen Plan is for home with home care I have personally seen and examined the patient, performed the documentation and the assessment and plan as written. Number of minutes spent on the visit: 10.
--- NOTE | 2023-04-28 14:25 | XR ---
EXAMINATION TYPE: XR chest 1V portable DATE OF EXAM: 04/28/2023 2:19 PM CLINICAL INDICATION:Male, 67 years old with history of CHF; COMPARISON: Chest radiographs from and 04/25/2023 per TECHNIQUE: XR chest 1V portable Frontal view of the chest. FINDINGS: Lungs/Pleura: There is flattening of the diaphragm with increased lucency of the lungs. No evidence o f pneumothorax, pleural effusion or focal consolidation. Pulmonary vascularity: Unremarkable. Heart/mediastinum: Cardiomediastinal silhouette is enlarged and stable. Single-lead cardiac conductio n device overlying the left hemithorax with lead projecting over the right ventricle. Musculoskeletal: No acute osseous pathology. IMPRESSION: COPD with evidence for congestive heart failure. Correlate with serum BNP.
[2023-04-29] MEDS ORDERED: TORSEMIDE 20 MG TAB PO SCH (09:00)
== END 2023-04-28 15:03 | disposition home or self-care (01) | DRG 291 ==
LOC: EC 06:16 → 5NMEDONC 15:18
PROVIDERS: ADMIT Family Medicine; ATTEND Family Medicine
DX: I13.0 Hypertensive heart and chronic kidney disease with heart failure and stage 1 through stage 4 chronic kidney disease, or unspecified chronic kidney disease (principal); I50.23 Acute on chronic systolic (congestive) heart failure; J96.01 Acute respiratory failure with hypoxia; I47.20 Ventricular tachycardia, unspecified; I69.351 Hemiplegia and hemiparesis following cerebral infarction affecting right dominant side; I45.89 Other specified conduction disorders; I27.22 Pulmonary hypertension due to left heart disease; E11.22 Type 2 diabetes mellitus with diabetic chronic kidney disease; F03.90 Unspecified dementia, unspecified severity, without behavioral disturbance, psychotic disturbance, mood disturbance, and anxiety; E11.51 Type 2 diabetes mellitus with diabetic peripheral angiopathy without gangrene; I71.43 Infrarenal abdominal aortic aneurysm, without rupture; N18.32 Chronic kidney disease, stage 3b; I48.0 Paroxysmal atrial fibrillation; I51.3 Intracardiac thrombosis, not elsewhere classified; I08.1 Rheumatic disorders of both mitral and tricuspid valves; E03.9 Hypothyroidism, unspecified; G89.29 Other chronic pain; I25.5 Ischemic cardiomyopathy; M54.9 Dorsalgia, unspecified; G47.33 Obstructive sleep apnea (adult) (pediatric); K21.9 Gastro-esophageal reflux disease without esophagitis; E78.5 Hyperlipidemia, unspecified; I25.10 Atherosclerotic heart disease of native coronary artery without angina pectoris; Z91.199 Patient's noncompliance with other medical treatment and regimen due to unspecified reason; Z79.01 Long term (current) use of anticoagulants; E87.6 Hypokalemia; S51.011A Laceration without foreign body of right elbow, initial encounter; M19.90 Unspecified osteoarthritis, unspecified site; R47.81 Slurred speech; R29.6 Repeated falls; W06.XXXA Fall from bed, initial encounter; Z20.822 Contact with and (suspected) exposure to COVID-19; I25.2 Old myocardial infarction; Y92.003 Bedroom of unspecified non-institutional (private) residence as the place of occurrence of the external cause; Z95.5 Presence of coronary angioplasty implant and graft; Z95.810 Presence of automatic (implantable) cardiac defibrillator; Z86.79 Personal history of other diseases of the circulatory system; Z91.81 History of falling; Z79.02 Long term (current) use of antithrombotics/antiplatelets; Z79.84 Long term (current) use of oral hypoglycemic drugs; Z79.899 Other long term (current) drug therapy; Z79.890 Hormone replacement therapy; Z82.49 Family history of ischemic heart disease and other diseases of the circulatory system; Z88.5 Allergy status to narcotic agent; Z87.891 Personal history of nicotine dependence; Z28.310 Unvaccinated for COVID-19; Z86.718 Personal history of other venous thrombosis and embolism
CPT/HCPCS: 36415; 70450; 71045; 71046; 72125; 80048; 80053; 80061; 81003; 82607; 82746; 83036; 83735; 83880; 84439; 84443; 84484; 85025; 87635; 93005; 93306; 94760; 96361; 96374; 99285

== ENCOUNTER 2023-11-13 03:17 | Emergency (ER) | payer MEDICARE ==
[2023-11-13 03:55] LABS: Basophils # (A) 0.1 k/uL (0-0.2); Basophils % (A) 1 %; Eosinophils # (A) 0.5 k/uL (0-0.7); Eosinophils % (A) 5 %; HCT 44.2 % (39.0-53.0); HGB 13.8 gm/dL (13.0-17.5); Lymphocytes % (A) 22 %; MCH 29.9 pg (25.0-35.0); MCHC 31.2 g/dL (31.0-37.0); MCV 95.8 fL (80.0-100.0); Mean Platelet Volume 10.2; Monocytes # (A) 0.6 k/uL (0-1.0); Monocytes % (A) 7 %; Neutrophils # (A) 5.7 k/uL (1.3-7.7); Neutrophils % (A) 64 %; Platelet Count 184 k/uL (150-450); RBC 4.61 m/uL (4.30-5.90); RDW 15.7 % (11.5-15.5)
[2023-11-13] MEDS: SODIUM CHLORIDE 0.9% 1,000 ML IV ONE (03:58)
--- NOTE | 2023-11-13 04:00 | ED ---
General Adult HPI - General Source: EMS Mode of arrival: EMS Limitations: no limitations <Garth Nixon - Last Filed: 11/13/23 05:54> <Demetris Workman - Last Filed: 11/13/23 12:42> - General Chief complaint: Alcohol Stated complaint: ETOH, Suicidal Time Seen by Provider: 11/13/23 03:26 - History of Present Illness Initial comments: Dictation was produced using [email or web address] dictation software. please excuse any grammatical, word or spelling errors. Chief Complaint: 68-year-old male with multiple comorbidities presents emergency department for alcohol intoxication and fall History of Present Illness: Patient is a 68-year-old male presents to the emergency department for alcohol intoxication, suicidality and fall. Patient is a poor historian. Patient apparently drank a pint of alcohol prior to arrival. According to EMS patient likely has been triggered by recent passing of his . Stated to EMS that the road is not a good place to live and that he hates everyone. There is no petition signed on his behalf. Patient is a poor historian secondary to alcohol intoxication. Patient is asking to leave. The ROS documented in this emergency department record has been reviewed and confirmed by me. Those systems with pertinent positive or negative responses have been documented in the HPI. All other systems are other negative and/or noncontributory. (Garth Nixon) - Related Data Home Medications Medication Instructions Recorded Confirmed Acyclovir [Zovirax] 200 mg PO BID 08/07/15 04/25/23 Torsemide [Demadex] 5 mg PO DAILY 12/22/17 04/25/23 glipiZIDE [Glucotrol] 5 mg PO DAILY 12/22/17 04/25/23 ALPRAZolam [Xanax] 1 mg PO TID 08/20/22 04/25/23 Atorvastatin [Lipitor] 80 mg PO DAILY 08/20/22 04/25/23 Metoprolol Tartrate [Lopressor] 100 mg PO BID 08/20/22 04/25/23 lisinopriL [Zestril] 10 mg PO BID 08/20/22 04/25/23 Levothyroxine Sodium [Synthroid] 150 mcg PO DAILY 04/25/23 04/25/23 QUEtiapine [SEROquel] 50 mg PO HS 04/25/23 04/25/23 Previous Rx's Medication Instructions Recorded Dapagliflozin Propanediol [Farxiga] 10 mg PO DAILY #30 tab 04/28/23 Levothyroxine Sodium 25 mcg PO DAILY #30 tablet 04/28/23 Pantoprazole [Protonix] 40 mg PO AC-BRKFST #30 tab 04/28/23 Rivaroxaban [Xarelto] 20 mg PO DAILY #30 tab 04/28/23 Allergies Allergy/AdvReac Type Severity Reaction Status Date / Time hydrocodone Allergy Itching Verified 11/13/23 03:24 Review of Systems ROS Other: All systems not noted in ROS Statement are negative. <Garth Nixon - Last Filed: 11/13/23 05:54> ROS Other: All systems not noted in ROS Statement are negative. <Demetris Workman - Last Filed: 11/13/23 12:42> ROS Statement: Those systems with pertinent positive or pertinent negative responses have been documented in the HPI. Past Medical History Past Medical History: Coronary Artery Disease (CAD), Chest Pain / Angina, CVA/TIA, Diabetes Mellitus, Deep Vein Thrombosis (DVT), GERD/Reflux, Hyp erlipidemia, Hypertension, Myocardial Infarction (MO), Osteoarthritis (OA), Thyroid Disorder, Vascular Disorder Additional Past Medical History / Comment(s): MO in 1988 &2013, hypothyroid, (pt poor historian), right side weakness from stroke Last Myocardial Infarction Date:: 1988 History of Any Multi-Drug Resistant Organisms: None Reported Past Surgical History: Back Surgery, Heart Catheterization With Stent, Pacemaker Additional Past Surgical History / Comment(s): Lt leg multiple surgeries for trauma, Rt finger surgery, arthroscopic L knee surgery , back injections for pain, L4-L5, back surgery, myelogram 2016 Past Anesthesia/Blood Transfusion Reactions: No Reported Reaction Date of Last Stent Placement:: 08/19/15 Type of Cardiac Device: Permanent Pacemaker, AICD Device Placement Date:: 2015 Past Psychological History: Anxiety Smoking Status: Former smoker Past Alcohol Use History: None Reported Past Drug Use History: None Reported - Past Family History Mother Family Medical History: Cancer Additional Family Medical History / Comment(s): Mother had renal cancer. She at age 72 from this. Father Family Medical History: Coronary Artery Disease (CAD) Additional Family Medical History / Comment(s): Father was a 3 ppd smoker. He at age 60 yrs of ASHD. <Garth Nixon - Last Filed: 11/13/23 05:54> General Exam Limitations: no limitations <Garth Nixon - Last Filed: 11/13/23 05:54> - General Exam Comments Initial Comments: PHYSICAL EXAM: General Impression: Alert and oriented x3, not in acute distress, inebriated HEENT: Abrasion to the forehead, extra-ocular movements intact, pupils equal and reactive to light bilaterally, mucous membranes moist. Cardiovascular: Heart regular rate and rhythm Chest: Able to complete full sentences, no retractions, no tachypnea Abdomen: abdomen soft, non-tender, non-distended, no organomegaly Musculoskeletal: Pulses present and equal in all extremities, no peripheral edema Motor: no focal deficits noted Neurological: CN II-XII grossly intact, no focal motor or sensory deficits noted Skin: Intact with no visualized rashes Psych: Normal affect and mood (Garth Nixon) Course Vital Signs 11/13/23 11/13/23 03:22 04:52 Temperature 97.5 F L Pulse Rate 51 L 55 L Respiratory 18 18 Rate Blood Pressure 90/51 116/68 O2 Sat by Pulse 96 94 L Oximetry EKG Findings - EKG Comments: EKG Findings:: My EKG interpretation: Ventricular rate 49, sinus bradycardia, NJ interval 2 3, cures 134, QTc 517. No NJ prolongation, no QTC prolongation, no ST or T-wave changes noted. EKG compared to April 25, 2023 showing no changes. Overall, this EKG is unremarkable <Garth Nixon - Last Filed: 11/13/23 05:54> Medical Decision Making - Lab Data Result diagrams: 11/13/23 03:33 11/13/23 04:47 <Garth Nixon - Last Filed: 11/13/23 05:54> - Lab Data Result diagrams: 11/13/23 03:33 11/13/23 04:47 <Demetris Workman - Last Filed: 11/13/23 12:42> - Medical Decision Making Was pt. sent in by a medical professional or institution (, PA, WINDOWS APPLICATION PACKAGER, urgent care, hospital, or correction...) When possible be specific @ -No Did you speak to anyone other than the patient for history (EMS, parent, family, police, friend...)? What history was obtained from this source @ -HPI obtained from EMS as described above Did you review nursing and triage notes (agree or disagree)? Why? @ -I reviewed and agree with nursing and triage notes Were old charts reviewed (outside hosp., previous admission, EMS record, old EKG, old radiological studies, urgent care reports/EKG's, correction records)? Report findings @ -No old charts were reviewed Differential Diagnosis (chest pain, altered mental status, abdominal pain women, abdominal pain men, vaginal bleeding, musculoskeletal, weakness, fever, dyspnea, syncope, headache, dizziness, GI bleed, back pain, seizure, CVA, palpatations, mental health)? @ -Differential Altered Mental Status: Hypoglycemia, DKA, hypercapnia, ETOH, overdose, CO poisoning, trauma, myxedema coma, HTN encephalopathy, infection, encephalitis, psychosis, intercranial hemorrhage, hepatic encephalopathy, meningitis, CVA, this is not meant to be an all-inclusive list EKG interpreted by me (3pts min.). @ -See above X-rays interpreted by me (1pt min.). @ -None done CT interpreted by me (1pt min.). @ -CT scan of the head and C-spine shows no acute processes. U/S interpreted by me (1pt. min.). @ -None done What testing was considered but not performed or refused? (CT, X-rays, U/S, labs)? Why? @ -None What meds were considered but not given or refused? Why? @ -None Did you discuss the management of the patient with other professionals (professionals i.e. , PA, WINDOWS APPLICATION PACKAGER, lab, RT, psych nurse, public health social worker, provider relations manager, teacher, account officer, block and case maker)? Give summary @ -No Was smoking cessation discussed for >3mins.? @ -No Was critical care preformed (if so, how long)? @ -No Were there social determinants of health that impacted care today? How? (Homelessness, low income, unemployed, alcoholism, drug addiction, dumont sportation, low edu. Level, literacy, decrease access to med. care, alf, rehab)? @ -No Was there de-escalation of care discussed even if they declined (Discuss DNR or withdrawal of care, Hospice)? DNR status @ -No What co-morbidities impacted this encounter? (DM, HTN, Smoking, COPD, CAD, Cancer, CVA, ARF, Chemo, Hep., AIDS, mental health diagnosis, sleep apnea, morbid obesity)? @ -History of coronary artery disease, TIA, diabetes, DVT Was patient admitted / discharged? Hospital course, mention meds given and route, prescriptions, significant lab abnormalities, going to OR and other pertinent info. @ -68-year-old male presents emergency department for alcoholic intoxication. He did report suicidality per EMS. Patient currently denies suicidal ideation. Patient did fall. Does take anticoagulation medications. Imaging studies are negative. Labs are unremarkable. Patient pending sobriety for EPS evaluation. Undiagnosed new problem with uncertain prognosis? @ -No Drug Therapy requiring intensive monitoring for toxicity (Heparin, Nitro, Insulin, Cardizem)? @ -No Were any procedures done? @ -No Diagnosis/symptom? Acute, or Chronic, or Acute on Chronic? Uncomplicated (with out systemic symptoms) or Complicated (systemic symptoms)? @ -Alcohol intoxication, suicidal ideation Side effects of treatment? @ -No Exacerbation, Progression, or Severe Exacerbation? @ -No Poses a threat to life or bodily function? How? (Chest pain, [place], MO, pneumonia, PE, COPD, DKA, ARF, appy, cholecystitis, CVA, Diverticulitis, Homicidal, Suicidal, threat to staff... and all critical care pts) @ -yes (Garth Nixon) Patient was seen by mental health services with plan for discharge. I did discuss this case with mental health nurse. Patient reevaluated by myself. Patient resting comfortably in bed and denies suicidal ideation. Patient does contract for safety. Patient is agreeable to follow-up with his primary care physician. Patient will be discharged to family. (Demetris Workman) - Lab Data Lab Results 11/13/23 11/13/23 11/13/23 Range/Units 03:33 04:47 04:47 WBC 9.0 (3.8-10.6) k/uL RBC 4.61 (4.30-5.90) m/uL Hgb 13.8 (13.0-17.5) gm/dL Hct 44.2 (39.0-53.0) % MCV 95.8 (80.0-100.0) fL MCH 29.9 (25.0-35.0) pg MCHC 31.2 (31.0-37.0) g/dL RDW 15.7 H (11.5-15.5) % Plt Count 184 (150-450) k/uL MPV 10.2 Neutrophils % 64 % Lymphocytes % 22 % Monocytes % 7 % Eosinophils % 5 % Basophils % 1 % Neutrophils # 5.7 (1.3-7.7) k/uL Lymphocytes # 2.0 (1.0-4.8) k/uL Monocytes # 0.6 (0-1.0) k/uL Eosinophils # 0.5 (0-0.7) k/uL Basophils # 0.1 (0-0.2) k/uL Sodium (137-145) mmol/L Potassium (3.5-5.1) mmol/L Chloride (98-107) mmol/L Carbon Dioxide (22-30) mmol/L Anion Gap mmol/L BUN (9-20) mg/dL Creatinine (0.66-1.25) mg/dL Est GFR (CKD-EPI)AfAm (>60 ml/min/1.73 sqM) Est GFR (CKD-EPI)NonAf (>60 ml/min/1.73 sqM) Glucose (74-99) mg/dL Calcium (8.4-10.2) mg/dL Ionized Calcium Graciela 4.7 (4.5-5.3) mg/dL Magnesium 2.0 (1.6-2.3) mg/dL Total Bilirubin (0.2-1.3) mg/dL AST (17-59) U/L ALT (4-49) U/L Alkaline Phosphatase (38-126) U/L Troponin I 0.016 (0.000-0.034) ng/mL Total Protein (6.3-8.2) g/dL Albumin (3.5-5.0) g/dL Serum Alcohol mg/dL 11/13/23 Range/Units 04:47 WBC (3.8-10.6) k/uL RBC (4.30-5.90) m/uL Hgb (13.0-17.5) gm/dL Hct (39.0-53.0) % MCV (80.0-100.0) fL MCH (25.0-35.0) pg MCHC (31.0-37.0) g/dL RDW (11.5-15.5) % Plt Count (150-450) k/uL MPV Neutrophils % % Lymphocytes % % Monocytes % % Eosinophils % % Basophils % % Neutrophils # (1.3-7.7) k/uL Lymphocytes # (1.0-4.8) k/uL Monocytes # (0-1.0) k/uL Eosinophils # (0-0.7) k/uL Basophils # (0-0.2) k/uL Sodium 143 (137-145) mmol/L Potassium 3.7 (3.5-5.1) mmol/L Chloride 109 H (98-107) mmol/L Carbon Dioxide 21 L (22-30) mmol/L Anion Gap 13 mmol/L BUN 11 (9-20) mg/dL Creatinine 1.09 (0.66-1.25) mg/dL Est GFR (CKD-EPI)AfAm 79 (>60 ml/min/1.73 sqM) Est GFR (CKD-EPI)NonAf 68 (>60 ml/min/1.73 sqM) Glucose 138 H (74-99) mg/dL Calcium 8.6 (8.4-10.2) mg/dL Ionized Calcium Graciela (4.5-5.3) mg/dL Magnesium (1.6-2.3) mg/dL Total Bilirubin 0.5 (0.2-1.3) mg/dL AST 30 (17-59) U/L ALT 31 (4-49) U/L Alkaline Phosphatase 101 (38-126) U/L Troponin I (0.000-0.034) ng/mL Total Protein 7.0 (6.3-8.2) g/dL Albumin 3.6 (3.5-5.0) g/dL Serum Alcohol 128 mg/dL Disposition <Garth Nixon - Last Filed: 11/13/23 05:54> Is patient prescribed a controlled substance at d/c from ED?: No Time of Disposition: 12:42 <Demetris Workman - Last Filed: 11/13/23 12:42> Clinical Impression: Alcoholic intoxication, Depression Disposition: HOME SELF-CARE Condition: Stable Instructions (If sedation given, give patient instructions): Alcohol Intoxic ation (ED), Depression (ED) Additional Instructions: Please do follow-up with your primary care physician beginning of the week. Return for thoughts of self-harm, worsening symptoms or other concerns. Do not drink alcohol. Referrals: Manas Cervantes Jr, [Primary Care Provider] - 1-2 days
[2023-11-13 04:46] VITALS: RESP 18; TEMP 97.5
[2023-11-13 05:17] LABS: Ionized Calcium 4.7 mg/dL (4.5-5.3)
[2023-11-13 05:24] LABS: ALT 31 U/L (4-49); AST 30 U/L (17-59); African American GFR (CKD) 79 (>60 ml/min/1.73 sqM); Albumin 3.6 g/dL (3.5-5.0); Alkaline Phosphatase 101 U/L (38-126); Anion Gap 13 mmol/L; Blood Urea Nitrogen 11 mg/dL (9-20); Calcium 8.6 mg/dL (8.4-10.2); Carbon Dioxide 21 mmol/L (22-30); Chloride 109 mmol/L (98-107); Glucose 138 mg/dL (74-99); Non-African American GFR(CKD) 68 (>60 ml/min/1.73 sqM); Potassium 3.7 mmol/L (3.5-5.1); Sodium 143 mmol/L (137-145); Total Bilirubin 0.5 mg/dL (0.2-1.3)
--- NOTE | 2023-11-13 05:36 | CT ---
EXAMINATION TYPE: CT brain cspine wo con DATE OF EXAM: 11/13/2023 COMPARISON: Prior trauma CT April 26, 2023 HISTORY: fall thinners etoh CT DLP: 1553 mGycm. Automated Exposure Control for Dose Reduction was Utilized. TECHNIQUE: CT scan of the head and cervical spine are performed without contrast. FINDINGS: There is no acute intracranial hemorrhage or midline shift identified. Mild to moderate v entricular and sulcal prominence redemonstrated. Moderate low-attenuation in the periventricular whit e matter again seen. Old areas of infarct in the left brain with ex vacuo dilatation are again seen. The calvarium is intact. Paranasal sinuses are grossly clear. Cervical spine is visualized in its entirety from C1 through upper thoracic levels and demonstrates s table alignment without evidence of acute fracture or dislocation. Prevertebral soft tissue appears within normal limits. The C1-C2 articulation is within normal limits on the coronal images. Vertebr al body heights are maintained. Moderate multilevel disc space narrowing and spurring is redemonstrat ed. Axial images show multilevel uncovertebral facet degenerative changes bilaterally. Thyroid gland is within normal limits. There is partial visualization of left sided pacemaker. Lung apices show no pneumothorax. IMPRESSION: 1. There is no acute fracture or dislocation evident in the cervical spine. 2. No acute intracranial hemorrhage or midline shift is seen. No significant change from prior trauma CT.
[2023-11-13 05:38] LABS: Alcohol 128 mg/dL
[2023-11-13 14:01] VITALS: BP 160/90; PULSE 51
== END 2023-11-13 13:25 | disposition home or self-care (01) ==
LOC: EC 03:17
DX: S00.81XA Abrasion of other part of head, initial encounter (principal); F10.129 Alcohol abuse with intoxication, unspecified; F32.A Depression, unspecified; Z88.5 Allergy status to narcotic agent; Z79.899 Other long term (current) drug therapy; Z87.891 Personal history of nicotine dependence; Z86.73 Personal history of transient ischemic attack (TIA), and cerebral infarction without residual deficits; W19.XXXA Unspecified fall, initial encounter; Y92.009 Unspecified place in unspecified non-institutional (private) residence as the place of occurrence of the external cause; Y90.6 Blood alcohol level of 120-199 mg/100 ml
CPT/HCPCS: 36415; 70450; 72125; 80053; 80320; 82330; 83735; 84484; 85025; 93005; 96360; 96361; 99285

== ENCOUNTER 2024-03-14 14:03 | Emergency (ER) | payer MEDICARE ==
[2024-03-14 14:10] VITALS: RESP 18; TEMP 97.7
--- NOTE | 2024-03-14 14:54 | ED ---
SOB HPI - General Source: patient, family, RN notes reviewed Mode of arrival: wheelchair Limitations: no limitations <Lisset Taylor - Last Filed: 03/14/24 14:53> - General Source: RN notes reviewed, old records reviewed Mode of arrival: wheelchair Limitations: no limitations - History of Present Illness MD Complaint: shortness of breath, cough, chest pain -: month(s) Severity: moderate Severity scale (1-10): 5 Consistency: constant Improves With: rest Worsens With: exertion Associated Symptoms: denies other symptoms Treatments Prior to Arrival: none <Santiago Antonio - Last Filed: 03/26/24 15:43> - General Chief Complaint: Shortness of Breath Stated Complaint: SOB, chest pain Time Seen by Provider: 03/14/24 14:20 - History of Present Illness Initial Comments: Quick [id number] male with a history of defibrillator and pacemaker in place presents emergency department chief complaint of dyspnea on exertion that has been intermittent over the past 3 months. States that this has been worsening over the past week. Patient is currently on Eliquis for history of blood clots. (Lisset Taylor) This is a 68-year-old male to the ER for significant dyspnea especially with exertion going on for 3 months and worsening (Santiago Antonio) - Related Data Home Medications Medication Instructions Recorded Confirmed Acyclovir [Zovirax] 200 mg PO BID 08/07/15 03/14/24 Torsemide [Demadex] 5 mg PO DAILY 12/22/17 03/14/24 glipiZIDE [Glucotrol] 5 mg PO DAILY 12/22/17 03/14/24 ALPRAZolam [Xanax] 1 mg PO TID 08/20/22 03/14/24 Atorvastatin [Lipitor] 80 mg PO DAILY 08/20/22 03/14/24 Metoprolol Tartrate [Lopressor] 100 mg PO BID 08/20/22 03/14/24 lisinopriL [Zestril] 10 mg PO BID 08/20/22 03/14/24 QUEtiapine [SEROquel] 50 mg PO HS PRN 04/25/23 03/14/24 Apixaban [Eliquis] 5 mg PO BID 03/14/24 03/14/24 Levothyroxine Sodium [Synthroid] 100 mcg PO DAILY 03/14/24 03/14/24 Allergies Allergy/AdvReac Type Severity Reaction Status Date / Time hydrocodone Allergy Itching Verified 03/14/24 16:38 Review of Systems ROS Other: All systems not noted in ROS Statement are negative. <Lisset Taylor - Last Filed: 03/14/24 14:53> ROS Other: All systems not noted in ROS Statement are negative. <Santiago Antonio - Last Filed: 03/26/24 15:43> ROS Statement: Those systems with pertinent positive or pertinent negative responses have been documented in the HPI. Past Medical History Past Medical History: Coronary Artery Disease (CAD), Chest Pain / Angina, CVA /TIA, Diabetes Mellitus, Deep Vein Thrombosis (DVT), GERD/Reflux, Hyperlipidemia, Hypertension, Myocardial Infarction (IN), Osteoarthritis (OA), Thyroid Disorder, Vascular Disorder Additional Past Medical History / Comment(s): IN in 1988 &2013, hypothyroid, (pt poor historian), right side weakness from stroke Last Myocardial Infarction Date:: 1988 History of Any Multi-Drug Resistant Organisms: None Reported Past Surgical History: Back Surgery, Heart Catheterization With Stent, Pacemaker Additional Past Surgical History / Comment(s): Lt leg multiple surgeries for trauma, Rt finger surgery, arthroscopic L knee surgery , back injections for pain, L4-L5, back surgery, myelogram 2015 Past Anesthesia/Blood Transfusion Reactions: No Reported Reaction Date of Last Stent Placement:: 08/19/15 Type of Cardiac Device: Permanent Pacemaker, AICD Device Placement Date:: 2015 Past Psychological History: Anxiety Smoking Status: Former smoker Past Alcohol Use History: None Reported Past Drug Use History: None Reported - Past Family History Mother Family Medical History: Cancer Additional Family Medical History / Comment(s): Mother had renal cancer. She at age 72 from this. Father Family Medical History: Coronary Artery Disease (CAD) Additional Family Medical History / Comment(s): Father was a 3 ppd smoker. He at age 60 yrs of ASHD. <Lisset Taylor - Last Filed: 03/14/24 14:53> General Exam Limitations: no limitations <Lisset Taylor - Last Filed: 03/14/24 14:53> General appearance: alert, in no apparent distress Head exam: Present: atraumatic, normocephalic, normal inspection Eye exam: Present: normal appearance, PERRL, EOMI. Absent: scleral icterus, conjunctival injection, periorbital swelling ENT exam: Present: normal exam, mucous membranes moist Neck exam: Present: normal inspection. Absent: tenderness, meningismus, lymphadenopathy Respiratory exam: Present: normal lung sounds bilaterally. Absent: respiratory distress, wheezes, rales, rhonchi, stridor Cardiovascular Exam: Present: regular rate, normal rhythm, normal heart sounds. Absent: systolic murmur, diastolic murmur, rubs, gallop, clicks GI/Abdominal exam: Present: soft, normal bowel sounds. Absent: distended, tenderness, guarding, rebound, rigid Extremities exam: Present: normal inspection, full ROM, normal capillary refill. Absent: tenderness, pedal edema, joint swelling, calf tenderness Back exam: Present: normal inspection Neurological exam: Present: alert, oriented X3, CN II-XII intact Psychiatric exam: Present: normal affect, normal mood Skin exam: Present: warm, dry, intact, normal color. Absent: rash <Santiago Antonio - Last Filed: 03/26/24 15:43> - General Exam Comments Initial Comments: Visual Physical Exam Vital signs reviewed General: Well-appearing, nontoxic, no acute distress. Head: Normocephalic, atraumatic Eyes: PERRLA, EOMI ENT: Airway patent Chest: Nonlabored breathing Skin: No visual rash, normal skin tone Neuro: Alert and oriented 3 Musculoskeletal: No gross abnormalities (Stieler,Lisset) Course <Santiago Antonio - Last Filed: 03/26/24 15:43> Vital Signs 03/14/24 03/14/24 14:06 18:10 Temperature 97.7 F Pulse Rate 63 60 Respiratory 18 18 Rate Blood Pressure 175/88 168/99 O2 Sat by Pulse 95 95 Oximetry - Reevaluation(s) Reevaluation #1: Medical records reviewed (Santiago Antonio) Reevaluation #2: Patient symptoms improved (Santiago Antonio) Reevaluation #3: Patient informed of results and questions answered (Santiago Antonio) Reevaluation #4: Was pt. sent in by a medical professional or institution (Dr., PA, QUALITY CONTROL SPECIALIST, urgent care, hospital, or snf...) When possible be specific @ -no Did you speak to anyone other than the patient for history (EMS, parent, family, police, friend...)? What history was obtained from this source @ -no Did you review nursing and triage notes (agree or disagree)? Why? @ -agree Are old charts reviewed (outside hosp., previous admission, EMS record, old EKG, old radiological studies, urgent care reports/EKG's, snf records)? Report findings @ -yes Differential Diagnosis (chest pain, altered mental status, abdominal pain women, abdominal pain men, vaginal bleeding, weakness, fever, dyspnea, syncope, headache, dizziness, GI bleed, back pain, seizure, CVA, palpatations, mental health, musculoskeletal)? @ -prior EKG interpreted by me (3pts min.). @ -yes X-rays interpreted by me (1pt min.). @ -yes negative for acute disease CT interpreted by me (1pt min.). @ -no U/S interpreted by me (1pt. min.). @ -no What testing was considered but not performed or refused? (CT, X-rays, U/S, labs)? Why? @ -none What meds were considered but not given or refused? Why? @ -none Did you discuss the management of the patient with other professionals (professionals i.e. ANTOINETTE Ruiz, QUALITY CONTROL SPECIALIST, lab, RT, psych nurse, social insurance specialist, independent distributor, teacher, environmental protection officer, geriatric case manager)? Give summary @ -no Was smoking cessation discussed for >3mins.? @ -no Was critical care preformed (if so, how long)? @ -no Were there social determinants of health that impacted care today? How? (Homelessness, low income, unemployed, alcoholism, drug addiction, transportation, low edu. Level, literacy, decrease access to med. care, long term, rehab)? @ -none Was there de-escalation of care discussed even if they declined (Discuss DNR or withdrawal of care, Hospice)? DNR status @ -no What co-morbidities impacted this encounter? (DM, HTN, Smoking, COPD, CAD, Cancer, CVA, ARF, Chemo, Hep., AIDS, mental health diagnosis, sleep apnea, morbid obesity)? @ -none Was patient admitted / discharged? Hospital course, mention meds given and route, prescriptions, significant lab abnormalities, [facility]. @ - 68 male to the ER for evaluation today chest pain weakness and CHF with no acute new symptoms here in the ER patient feels well and can be discharged Discharge Undiagnosed new problem with uncertain prognosis? @ -no Drug Therapy requiring intensive monitoring for toxicity (Heparin, Nitro, Insulin, Cardizem)? @ -no Were any procedures done? @ -no Diagnosis/symptom? @ -CHF and weakness Acute, or Chronic, or Acute on Chronic? @ -Acute Uncomplicated (without systemic symptoms) or Complicated (systemic symptoms)? @ -Complicated Side effects of treatment? @ -no Exacerbation, Progression, or Severe Exacerbation? @ -exacerbation Poses a threat to life or bodily function? How? (Chest pain, [place], [place], pneumonia, PE, COPD, DKA, ARF, appy, cholecystitis, CVA, Diverticulitis, Homicidal, Suicidal, threat to staff... and all critical care pts) @ -yes extremes of age (Santiago Antonio) Reevaluation #5: Differential Dyspnea: Coronary syndrome, arrhythmia, tamponade, asthma, COPD, pulmonary embolism, pneumonia, pneumothorax, pulmonary effusion, anaphylaxis, diabetic ketoacidosis, flailed chest, pulmonary contusion, diaphragmatic rupture, anemia, neuromuscular, this is not meant to be an all-inclusive list. (Santiago Antonio) Medical Decision Making <Lisset Taylor - Last Filed: 03/14/24 14:53> - Lab Data Result diagrams: 03/14/24 15:39 03/14/24 15:39 - EKG Data -: EKG Interpreted by Me (EKG is sinus bradycardia 59 NV 184 QRS 126 QTc 460) - Radiology Data Radiology results: report reviewed (Chest x-ray shows CHF unchanged from prior), image reviewed <Santiago Antonio - Last Filed: 03/26/24 15:43> - Medical Decision Making I completed the quick note portion of this chart signed Lisset Taylor PA-C (Lisset Taylor) 68 male to the ER for evaluation today chest pain weakness and CHF with no acute new symptoms here in the ER patient feels well and can be discharged (Santiago Antonio) - Lab Data Lab Results 03/14/24 03/14/24 03/14/24 Range/Units 15:39 15:39 15:39 WBC 9.9 (3.8-10.6) k/uL RBC 4.94 (4.30-5.90) m/uL Hgb 14.9 (13.0-17.5) gm/dL Hct 46.9 (39.0-53.0) % MCV 94.8 (80.0-100.0) fL MCH 30.1 (25.0-35.0) pg MCHC 31.7 (31.0-37.0) g/dL RDW 14.9 (11.5-15.5) % Plt Count 186 (150-450) k/uL MPV 10.2 Neutrophils % 68 % Lymphocytes % 17 % Monocytes % 7 % Eosinophils % 7 % Basophils % 1 % Neutrophils # 6.7 (1.3-7.7) k/uL Lymphocytes # 1.6 (1.0-4.8) k/uL Monocytes # 0.7 (0-1.0) k/uL Eosinophils # 0.7 (0-0.7) k/uL Basophils # 0.1 (0-0.2) k/uL PT 12.0 (10.0-12.5) sec INR 1.1 (<1.2) APTT 26.2 (22.0-30.0) sec Sodium 141 (137-145) mmol/L Potassium 4.0 (3.5-5.1) mmol/L Chloride 103 (98-107) mmol/L Carbon Dioxide 31 H (22-30) mmol/L Anion Gap 7 mmol/L BUN 16 (9-20) mg/dL Creatinine 0.87 (0.66-1.25) mg/dL Est GFR (CKD-EPI)AfAm >90 (>60 ml/min/1.73 sqM) Est GFR (CKD-EPI)NonAf 88 (>60 ml/min/1.73 sqM) Glucose 157 H (74-99) mg/dL Calcium 9.1 (8.4-10.2) mg/dL Magnesium 2.0 (1.6-2.3) mg/dL Total Bilirubin 1.0 (0.2-1.3) mg/dL AST 22 (17-59) U/L ALT 16 (4-49) U/L Alkaline Phosphatase 88 (38-126) U/L Troponin I (0.000-0.034) ng/mL Total Protein 7.7 (6.3-8.2) g/dL Albumin 4.2 (3.5-5.0) g/dL 03/14/24 Range/Units 15:39 WBC (3.8-10.6) k/uL RBC (4.30-5.90) m/uL Hgb (13.0-17.5) gm/dL Hct (39.0-53.0) % MCV (80.0-100.0) fL MCH (25.0-35.0) pg MCHC (31.0-37.0) g/dL RDW (11.5-15.5) % Plt Count (150-450) k/uL MPV Neutrophils % % Lymphocytes % % Monocytes % % Eosinophils % % Basophils % % Neutrophils # (1.3-7.7) k/uL Lymphocytes # (1.0-4.8) k/uL Monocytes # (0-1.0) k/uL Eosinophils # (0-0.7) k/uL Basophils # (0-0.2) k/uL PT (10.0-12.5) sec INR (<1.2) APTT (22.0-30.0) sec Sodium (137-145) mmol/L Potassium (3.5-5.1) mmol/L Chloride (98-107) mmol/L Carbon Dioxide (22-30) mmol/L Anion Gap mmol/L BUN (9-20) mg/dL Creatinine (0.66-1.25) mg/dL Est GFR (CKD-EPI)AfAm (>60 ml/min/1.73 sqM) Est GFR (CKD-EPI)NonAf (>60 ml/min/1.73 sqM) Glucose (74-99) mg/dL Calcium (8.4-10.2) mg/dL Magnesium (1.6-2.3) mg/dL Total Bilirubin (0.2-1.3) mg/dL AST (17-59) U/L ALT (4-49) U/L Alkaline Phosphatase (38-126) U/L Troponin I 0.014 (0.000-0.034) ng/mL Total Protein (6.3-8.2) g/dL Albumin (3.5-5.0) g/dL Disposition <Lisset Taylor - Last Filed: 03/14/24 14:53> Is patient prescribed a controlled substance at d/c from ED?: No Time of Disposition: 17:50 <Santiago Antonio - Last Filed: 03/26/24 15:43> Clinical Impression: Weakness, CHF (congestive heart failure), Chest pain Disposition: HOME SELF-CARE Condition: Good Instructions (If sedation given, give patient instructions): Heart Failure (ER) Referrals: Manas Cervantes Jr, [Primary Care Provider] - 1-2 days
[2024-03-14 15:47] LABS: Basophils # (A) 0.1 k/uL (0-0.2); Basophils % (A) 1 %; Eosinophils # (A) 0.7 k/uL (0-0.7); Eosinophils % (A) 7 %; HCT 46.9 % (39.0-53.0); HGB 14.9 gm/dL (13.0-17.5); Lymphocytes # (A) 1.6 k/uL (1.0-4.8); Lymphocytes % (A) 17 %; MCH 30.1 pg (25.0-35.0); MCHC 31.7 g/dL (31.0-37.0); MCV 94.8 fL (80.0-100.0); Mean Platelet Volume 10.2; Monocytes # (A) 0.7 k/uL (0-1.0); Monocytes % (A) 7 %; Neutrophils # (A) 6.7 k/uL (1.3-7.7); Neutrophils % (A) 68 %; Platelet Count 186 k/uL (150-450); RBC 4.94 m/uL (4.30-5.90); RDW 14.9 % (11.5-15.5); WBC 9.9 k/uL (3.8-10.6)
[2024-03-14 15:57] LABS: ALT 16 U/L (4-49); AST 22 U/L (17-59); African American GFR (CKD) >90 (>60 ml/min/1.73 sqM); Albumin 4.2 g/dL (3.5-5.0); Alkaline Phosphatase 88 U/L (38-126); Anion Gap 7 mmol/L; Blood Urea Nitrogen 16 mg/dL (9-20); Calcium 9.1 mg/dL (8.4-10.2); Carbon Dioxide 31 mmol/L (22-30); Chloride 103 mmol/L (98-107); Glucose 157 mg/dL (74-99); Non-African American GFR(CKD) 88 (>60 ml/min/1.73 sqM); Sodium 141 mmol/L (137-145); Total Protein 7.7 g/dL (6.3-8.2)
[2024-03-14 16:03] LABS: INR 1.1 (<1.2); Partial Thromboplastin Time 26.2 sec (22.0-30.0)
--- NOTE | 2024-03-14 16:46 | XR ---
EXAMINATION TYPE: XR chest 2V DATE OF EXAM: 03/14/2024 COMPARISON: 04/28/2023 INDICATION: Short of breath TECHNIQUE: Frontal and lateral views of the chest are obtained. FINDINGS: The heart size is enlarged. Pacemaker overlies left chest. Leads appear unchanged. The pulmonary vasculature is prominent. No suspicious focal consolidations are evident. Subtle alveolar infiltrate may be present. . IMPRESSION: 1. Correlate for mild congestive heart failure. [facility], , 03/14/2024 4:43 PM
[2024-03-14] MEDS: FUROSEMIDE 10 MG/ML 4 ML VIAL IV STA (17:57)
[2024-03-14 18:11] VITALS: BP 168/99; PULSE 60
== END 2024-03-14 18:11 | disposition home or self-care (01) ==
LOC: EC 14:03
CPT/HCPCS: 36415; 71046; 80053; 83735; 84484; 85025; 85610; 85730; 93005; 96374; 99285

== ENCOUNTER → 2024-08-17 | Outpatient (CLI) | payer MEDICARE ==
--- NOTE | 2024-08-17 16:18 | US ---
EXAMINATION TYPE: US arterial LE single level DATE OF EXAM: 08/17/2024 4:07 PM COMPARISONS: None. CLINICAL INDICATION: Male, 68 years old with history of M79.672 LET FOOT PAIN L53.9 RUBOR; patient st ates bilateral leg pain, neuropathy, h/o bypass grafts down both legs years ago TECHNIQUE: Systolic pressures were taken of the upper and lower extremity arteries with ankle-brachia l indices and toe brachial indices calculated bilaterally. History of: Smoker: previous Hypertension: y Diabetic: n Hyperlipidemia: y TIA/CVA: y Previous Vascular Surgery: y - leg grafts CAD: n MO: y Vascular Ulcers: n Claudication: patient can't walk Gangrene: n FINDINGS: Doppler Waveforms: Right: Monophasic Left: Monophasic Brachial Artery systolic pressure: Right: 139 Left: 157 Posterior Tibial artery systolic pressure: Right: 50 Left: 81 Dorsalis Pedis artery systolic pressure: Right: 120 Left: 49 Ankle-Brachial Indices: Right: 0.76 Left: 0.52 IMPRESSION: JESSICA: Right: Some Arterial Disease 0.7 - 0.8, , Recommendation: Treat Risk Factors Left: Moderate Arterial Disease 0.5-0.8, Recommendation: Refer to vascular specialist [facility], , 08/17/2024 4:16 PM
== END | disposition home or self-care (01) ==
LOC: RADUSWWP 15:21
PROVIDERS: ATTEND Family Medicine
DX: I77.89 Other specified disorders of arteries and arterioles (principal); L53.9 Erythematous condition, unspecified
CPT/HCPCS: 93922

== ENCOUNTER → 2024-09-26 | Outpatient (CLI) | payer MEDICARE ==
--- NOTE | 2024-09-26 16:18 | US ---
EXAMINATION TYPE: US venous doppler duplex LE BI DATE OF EXAM: 09/26/2024 3:58 PM COMPARISON: NONE CLINICAL INDICATION: Male, 68 years old with history of M79.672 PAIN IN LEFT FOOT L53.9 ERYTHEMATOUS CONDI; , Pain TECHNIQUE: The lower extremity deep venous system is examined utilizing real time linear array sonog jose de jesus with graded compression, color doppler sonography, and spectral doppler. SIDE PERFORMED: Bilateral FINDINGS: VESSELS IMAGED: Common Femoral Vein Deep Femoral Vein Greater Saphenous Vein * Femoral Vein Popliteal Vein Small Saphenous Vein * Proximal Calf Veins (* superficial vessels) Pt had multiple stents placed in Lt leg making it difficult to visualize veins Right Leg: appears negative for DVT, Color Doppler imaging shows patency of the vessels. Spectral wa veforms are within normal limits. Left Leg: appears negative for DVT, Color Doppler imaging shows patency of the vessels. Spectral wav eforms are within normal limits. IMPRESSION: No ultrasound evidence for deep venous thrombosis. [facility], , 09/26/2024 4:16 PM
== END | disposition home or self-care (01) ==
LOC: RADUSWWP 14:57
PROVIDERS: ATTEND Family Medicine
DX: M79.672 Pain in left foot (principal); L53.9 Erythematous condition, unspecified
CPT/HCPCS: 93970